=== PATIENT | female | born 1945 | race Caucasian/White ===

== ENCOUNTER 2019-11-14 21:15 | Observation (INO) | payer MEDICARE, SELFPAY ==
--- NOTE | ~2019-11-14 | CT_ITS ---
EXAMINATION: CT abdomen pelvis wo con DATE: 11/14/2019 22:09 INDICATION: Abdominal pain TECHNIQUE: Computed tomography (CT) of the abdomen and pelvis was performed without intravenous contr ast. The dose-length product (DLP) was 1478.47 mGy-cm. Automated exposure control and iterative recon struction technique were employed. COMPARISON: 12/20/2018 FINDINGS: There is pleural thickening and rounded atelectasis of the right lower lobe. The heart size is normal. Calcified coronary artery atherosclerosis is noted. The gallbladder is surgically absent. There is mild enlargement of the common bile duct and central intrahepatic ducts which is likely due to post cholecystectomy state. The liver, spleen, pancreas, and adrenal glands are normal. There is mild atrophy of the kidneys. There is calcified atherosclerosis of the aorta and many of the other ar teries. No pathologically enlarged abdominal or pelvic lymph nodes are identified. There are changes of right hemicolectomy. There is severe lumbar spondylosis. A tiny fat-containing umbilical hernia is noted. IMPRESSION: 1. No CT correlate for the patient's symptoms. Reviewed, dictated and finalized at location A.
--- NOTE | ~2019-11-14 | XR_ITS ---
EXAMINATION: XR chest 1V portable EXAM DATE: 11/14/2019 23:24 INDICATION: Cough. TECHNIQUE: Frontal and lateral projections of the chest obtained and reviewed. Comparison is made to prior examination from 12/20/2018. FINDINGS: Right lower lobe segmental airspace disease most likely round atelectasis with some chroni c right pleural blunting, correlating with chest CT from last year. Sternotomy wires are present with out findings to suggest sternal dehiscence. No acute airspace disease, pneumothorax or pleural effusi on. Right humeral hardware. The bones are osteopenic. There are bony degenerative changes. IMPRESSION: 1. No acute cardiopulmonary findings. Reviewed, dictated and finalized at location A.
[2019-11-14 21:23] VITALS: BP 135/59; PULSE 76; RESP 20; TEMP 37.1; O2SAT 99
--- NOTE | 2019-11-14 21:32 | ED.NAVMDI ---
HPI - Nausea/Vomiting/Diarrhea General Chief complaint: Nausea/Vomiting/Diarrhea Stated complaint: n/v Source: RN notes reviewed History of Present Illness HPI Narrative: Patient presents emergency department from home for nausea vomiting abdominal pain. Patient states symptoms began 2 days ago. States abdominal pain is diffuse throughout the abdomen described as aching with episodes of nausea and vomiting. Denies any fevers or chills chest pain shortness of breath diarrhea or any other symptoms. States she last took Tylenol this evening Related Data Home Medications Medication Instructions Recorded Confirmed fluorometholone 1 % OPHTHALMIC (EYE) BID 12/20/18 12/21/18 midodrine 5 mg PO TID 12/20/18 12/21/18 omeprazole 20 mg PO BID 12/20/18 12/21/18 insulin glargine 100 unit/mL (3 3 unit SUB-Q .QHS ml 03/09/19 11/02/19 mL) subcutaneous pen Allergies Allergy/AdvReac Type Severity Reaction Status Date / Time lisinopril Allergy Unknown Cough Verified 11/02/19 14:18 Review of Systems Review of Systems: Narrative: Gen.: Denies fevers or chills ENT: Denies congestion Respiratory: Denies shortness of breath or cough CV: Denies chest pain or palpitations GI: See HPI denies burning, urgency, frequency or hematuria Musculoskeletal: Denies back pain or muscle pain Neuro: Denies numbness, tingling, weakness or focal weakness Skin: Denies rash Except as documented, all other systems reviewed and negative PMFSH Past Medical History Medical History Acute hypercapnic respiratory failure requiring intubation January 2015 Anemia in chronic kidney disease last transfusion December 2017 COPD exacerbation Coronary artery disease End stage renal failure on dialysis hemodialysis Friday managed by Dr. Marmolejo Essential hypertension Gastritis determined by endoscopy April 2018 Glaucoma Gout History of GI bleed last EGD April [address] Arauz demonstrated multiple shallow duodenal ulcers without evidence of bleeding Lesion of skin of wrist Megaloblastic anemia Morbid obesity with BMI of 50.0-59.9, adult Obstructive sleep apnea treated with BiPAP Reflux esophagitis most recent EGD April 2018 Shingles Social History Social History Smoking status: Never smoker Alcohol intake: never Substance use: never Gender identity (if verbalized by the patient): Female Spiritual care concerns: No Agree to blood products: Yes Exam Narrative: Exam Narrative: APPEARANCE: No acute distress, nontoxic, resting in bed HEENT: Normocephalic, atraumatic, OMM RESPIRATORY: No respiratory distress, clear to auscultation bilaterally with no rhonchi wheezing or rales CARDIOVASCULAR: RRR s murmur ABDOMINAL: Soft, nondistended, diffusely tender palpation, no rebound or guarding MUSCULOSKELETAl: Moves all extremities. No clubbing, cyanosis or edema. NEURO: Awake and alert. Following commands, speech normal, no focal deficits SKIN:: Warm, dry. Normal Color PSYCHIATRIC: Normal affect/mood Course Course Emergency Course: Patient states he makes urine approximately once a day to once every other day she receives dialysis on Friday and is followed by Dr. Marmolejo for nephrology Patient continues to have nausea attempted p.o. challenge unable to keep down water will admit at this time Discussed with Dr. Freedman presentation work-up. Agrees with admission Discussed with patient and family results of workup and diagnosis. Discussed need for admission. Patient and family understand and agree to current treatment plan Vital Signs Vital signs: Vital Signs Temperature 98.8 F 11/14/19 21:23 Pulse Rate 76 11/14/19 21:23 Respiratory Rate 20 11/14/19 21:23 Blood Pressure 135/59 L 11/14/19 21:23 Pulse Oximetry 99 11/14/19 21:23 Temperature 98.8 F 11/14/19 21:23 Pulse
[2019-11-14] MEDS: SODIUM CHLORIDE 0.9% IV 1,000 ML 999 ML IV CONT (21:36)
[2019-11-14 21:40] LABS: Basophils Absolute Auto 0.1 K/mm3 (0.0-0.1); Basophils Percent Auto 0.8 % (0.2-1.2); Eosinophils Absolute Auto 0.1 K/mm3 (0-0.3); Eosinophils Percent Auto 1.3 % (0-4.4); Hemoglobin 11.1 g/dL (12.0-15.0); Immature Granulocyte Absolute 0.03 K/mm3 (0.00-0.031); Immature Granulocyte Percent A 0.5 % (0-0.5); Lymphocytes Absolute Auto 1.32 K/mm3 (0.9-3.2); Lymphocytes Percent Auto 21.6 % (18.3-44.2); Mean Corpuscular HGB Conc 31.7 g/dl (32-36); Mean Corpuscular Hemoglobin 33.4 pg (26-34); Mean Corpuscular Volume 105.4 fl (80-100); Mean Platelet Volume 9.4 fl (7.4-10.4); Monocytes Absolute Auto 0.7 K/mm3 (0.1-0.6); Monocytes Percent Auto 11.3 % (2.6-8.5); Neutrophils Absolute Auto 3.9 K/mm3 (1.3-6.7); Neutrophils Percent Auto 64.5 % (45.5-73.1); Platelet Count Result 166 k/mm3 (150-375); Red Blood Count 3.32 M/mm3 (4.2-5.4); Red Cell Distribution Width 13.2 % (11.5-14.5); White Blood Count 6.1 K/mm3 (4.5-10.0)
[2019-11-14 21:49] LABS: INR 1.1; Prothrombin Time 14.1 Seconds (11.1-14.7)
[2019-11-14 21:50] LABS: Partial Thromboplastin Time 26.9 SECONDS (22.3-36.8)
[2019-11-14 21:52] LABS: Alanine Aminotransferase 9 U/L (4-35); Albumin Level 4.3 g/dL (3.5-5.1); Alkaline Phosphatase 98 U/L (38-126); Anion Gap 20 mmol/L (8-16); Aspartate Amino Transferase 20 U/L (14-36); Bilirubin,Total 1.6 mg/dL (0.2-1.3); Blood Urea Nitrogen 48 mg/dL (7-17); Calcium 9.4 mg/dL (8.4-10.2); Carbon Dioxide 23 mmol/L (22-30); Chloride 96 mmol/L (98-107); Estimated CRCL calculation 7 ml/min; Estimated Glomerular Filt Rate 5; Glucose 75 mg/dL (65-105); Lipase 162 U/L (23-300); Potassium 3.9 mmol/L (3.4-5.0); Sodium 139 mmol/L (137-145)
[2019-11-14 23:28] LABS: Add Urine Microscopic? YES; Appearance Urine Turbid (Clear); Bilirubin Urine 2+ (Negative); Blood Urine Negative (Negative); Color Urine Yellow (Yellow); Glucose Urine UA Negative (Negative); Ketones Urine Negative (Negative); Leukocyte Esterase Ur 2+ LEU/UL (Negative); Nitrate Urine Negative (Negative); Protein Urine 2+ mg/dL (Negative); Specific Grav Ur 1.016 (1.001-1.035); Urobilinogen Urine Negative mg/dL (<2.0); WBC Clumps Urine Present /HPF; WBC Urine >75 /hpf
[2019-11-15] VITALS (20 sets, daily range): BP systolic 98–148; BP diastolic 36–75; PULSE 70–92; RESP 16–20; TEMP 36.2–37.2; O2SAT 99–100; BMI 48.7
--- NOTE | 2019-11-15 00:04 | PC.NURSE ---
pt provided with water at this time; states that she is nauseous, updated
--- NOTE | 2019-11-15 01:15 | ADMGEN ---
This patient, Reyes Osman, was admitted to [facility] Surg Room 306-01. Patient/family oriented to hospital policies and general routines including ID bracelet, bed and alarms, visiting hours, pain management, procedures, bathroom and other care routines, personal items, smoking policy, room service/diet, and visiting hours. Valuables list has been completed. Information on how to activate the Rapid Response Team has been discussed. Patient/Family are encouraged to report perceived risks to care and to ask questions if they do not understand what they are told or what they should do.
--- NOTE | 2019-11-15 03:28 | PC.NURSE ---
Called [facility] for med list. Facility to fax list.
[2019-11-15] MEDS: DEXTROSE 50% 25 GM/50 ML SYRINGE IV PUSH (05:35)
[2019-11-15 05:57] LABS: Glucose Point of Care 108 (65-105)
[2019-11-15 05:57] LABS: Glucose Point of Care 42 (65-105)
[2019-11-15 08:01] LABS: Hematocrit 32.2 % (37.0-47.0); Hemoglobin 10.3 g/dL (12.0-15.0); Mean Corpuscular Hemoglobin 33.8 pg (26-34); Mean Corpuscular Volume 105.6 fl (80-100); Mean Platelet Volume 9.4 fl (7.4-10.4); Platelet Count Result 152 k/mm3 (150-375); Red Blood Count 3.05 M/mm3 (4.2-5.4); Red Cell Distribution Width 13.2 % (11.5-14.5); White Blood Count 6.3 K/mm3 (4.5-10.0)
[2019-11-15 08:25] LABS: Anion Gap 17 mmol/L (8-16); Blood Urea Nitrogen 50 mg/dL (7-17); Calcium 9.1 mg/dL (8.4-10.2); Carbon Dioxide 23 mmol/L (22-30); Chloride 99 mmol/L (98-107); Estimated CRCL calculation 6 ml/min; Estimated Glomerular Filt Rate 4; Glucose 82 mg/dL (65-105); Potassium 3.7 mmol/L (3.4-5.0); Sodium 139 mmol/L (137-145)
--- NOTE | 2019-11-15 08:46 | PM.IMHP ---
H&P: HPI History of Present Illness Date/Time: 11/15/19 08:46 Chief complaint: UTI, nausea and vomiting, CHF Narrative: Reyes Osman is a 74 year old female with PMH significant for ESRD on HD, chronic anemia, IDDM, CAD s/p CABG, aortic stenosis s/p bioprosthetic repair and subsequent TAVR, HFpEF, NGUYỄN with BiPAP noncompliance, and GERD who presented to the emergency department for the evaluation of nausea, vomiting, and abdominal discomfort. She reports that symptoms started . She notes diffuse aching in the lower abdomen. She reports associated chills and malaise. She denies flank and lower back pain. She makes very little urine given ESRD on HD and denies dysuria but reports incontinence with coughing. She notes nausea and dry heaves. She denies chest pain, dyspnea, and cough. Her bowels are regular and her last bowel movement was yesterday. She is not having diarrhea, melena, or hematochezia. Initial workup in the emergency department was notable for UA with 2+ leukocyte esterase, >75 WBC, WBC clumps suspicious for UTI. CT abd/pelvis was performed with no acute abnormalities. WBC normal at 6.1. CXR showed no evidence of consolidation or other abnormalities. She was treated with IV ceftriaxone for UTI and admitted to the hospitalist service for further management. At the time of my evaluation, she feels much better and would like to try and eat something. Her nausea, vomiting, and abdominal pain have improved. Review of Systems Review of Systems: Narrative: Constitutional: Reports chills and malaise. Denies subjective fever. Eyes: Denies vision change. No additional eye complaints. ENT: Denies change in hearing, nasal congestion, dysphagia, odynophagia, and sore throat. Cardiovascular: Denies palpitations and chest pain. Denies dyspnea and PND. Respiratory: Denies cough and shortness of breath. Reports noncompliance with BiPAP for NGUYỄN. Gastrointestinal: As above. Reports nausea and vomiting. Reports diffuse aching abdominal pain. Genitourinary: Reports oliguria given ESRD on HD. Reports incontinence with coughing. Denies dysuria and hematuria. Musculoskeletal: Reports right left knee pain since she has not taken her lyrica today. Skin: LUE AV fistula present and functioning well per pt. Neurologic: Denies focal weakness, paresthesias, confusion, headaches, and speech change. Hematologic: Reports easy bruising. Denies bleeding. All systems reviewed & are unremarkable except as noted in HPI and below PMFSH Past Medical History Medical History (Updated 11/15/19 @ 09:35 by Zara Funez PA-C) Acute hypercapnic respiratory failure requiring intubation January 2015 Anemia in chronic kidney disease last transfusion December 2017 COPD exacerbation Coronary artery disease Depression End stage renal failure on dialysis hemodialysis Friday managed by Dr. Marmolejo Essential hypertension Gastritis determined by endoscopy April 2018 Glaucoma Gout History of GI bleed last EGD April [address] Arauz demonstrated multiple shallow duodenal ulcers without evidence of bleeding Lesion of skin of wrist Megaloblastic anemia Morbid obesity with BMI of 50.0-59.9, adult Obstructive sleep apnea treated with BiPAP Reflux esophagitis most recent EGD April 2018 Shingles Surgical History Surgical History (Updated 11/15/19 @ 09:06 by Zara Funez PA-C) H/O right hemicolectomy due to bowel perforation abscess January 2015 History of aortic valve replacement with bioprosthetic valve in 2012 History of cataract surgery bilateral History of cholecystectomy necrotic cholecystitis October 2014 with drain placed followed by eventual cholecystectomy and right hemicolectomy Hx of appendectomy S/P CABG x 5 in 2005 S/P dialysis catheter insertion S/P ORIF (open reduction internal fixation) fracture right humerus fracture S/P TAVR (transcatheter aortic valve replacement) Family History Fami
[2019-11-15] MEDS: ONDANSETRON INJ 4 MG/2 ML VIAL IV PUSH (09:07)
[2019-11-15] MEDS: ESCITALOPRAM OXALATE 10 MG TABLET PO (09:16)
[2019-11-15] MEDS: TICAGRELOR 90 MG TABLET PO ×2 (09:16→23:32)
[2019-11-15] MEDS: guaiFENesin 12 HR 600 MG TABCR 1200 MG PO ×2 (09:16→23:32)
[2019-11-15] MEDS: MIDODRINE HCL 2.5 MG TABLET 5 MG PO ×3 (09:17→17:29)
[2019-11-15] MEDS: PANTOPRAZOLE 40 MG TABLET PO ×2 (09:17→23:32)
[2019-11-15] MEDS: PREGABALIN (*CRX) 50 MG CAPSULE 100 MG PO ×2 (10:40→23:32)
[2019-11-15] MEDS: SUCRALFATE SUSP 100 MG/ML 10 ML UDC 1000 MG PO ×2 (13:06→17:28)
[2019-11-15 13:21] LABS: Glucose Point of Care 84 (65-105)
[2019-11-15] MEDS: ASPIRIN 81 MG CHEWABLE TABLET PO (17:29)
[2019-11-15 18:04] LABS: Glucose Point of Care 100 (65-105)
[2019-11-15 18:54] LABS: Hepatitis B Surface Antigen Negative (Negative)
[2019-11-15 19:12] LABS: Hepatitis B Surface Anti Res Negative
--- NOTE | 2019-11-15 21:46 | PC.NURSE ---
Patient wishes to take 2100 meds when dialysis is finished.
--- NOTE | 2019-11-15 22:33 | PM.PNNEP ---
Progress Note: A&P Assessment and Plan (1) Acute UTI: Code(s): N39.0 - Urinary tract infection, site not specified Status: Acute (2) Chronic pain: Code(s): G89.29 - Other chronic pain Status: Chronic (3) Depression: Code(s): F32.9 - Major depressive disorder, single episode, unspecified Status: Chronic (4) Coronary artery disease: Code(s): I25.10 - Atherosclerotic heart disease of [place] coronary artery without angina pectoris Status: Chronic (5) Nausea & vomiting: Code(s): R11.2 - Nausea with vomiting, unspecified Status: Acute (6) Chronic congestive heart failure: Code(s): I50.9 - Heart failure, unspecified Status: Acute (7) Coronary artery disease involving [place] heart without angina pectoris: Code(s): I25.10 - Atherosclerotic heart disease of [place] coronary artery without angina pectoris Status: Acute (8) Morbid obesity: Code(s): E66.01 - Morbid (severe) obesity due to excess calories Status: Acute (9) NGUYỄN (obstructive sleep apnea): Code(s): G47.33 - Obstructive sleep apnea (adult) (pediatric) Status: Acute (10) Multinodular goiter: Code(s): E04.2 - Nontoxic multinodular goiter Status: Acute (11) Mixed hyperlipidemia: Code(s): E78.2 - Mixed hyperlipidemia Status: Acute (12) Type 2 diabetes mellitus with diabetic nephropathy: Qualifiers: Diabetes mellitus manager terminal insulin use: with manager terminal use Qualified Code(s): E11.21 - Type 2 diabetes mellitus with diabetic nephropathy; Z79.4 - terminologist (current) use of insulin Code(s): E11.21 - Type 2 diabetes mellitus with diabetic nephropathy Status: Chronic (13) Generalized muscle weakness: Code(s): M62.81 - Muscle weakness (generalized) Status: Acute Additional Plan poss extra dialysis tomorrow. Subjective Date/time seen: 11/15/19 15:33 on dialysis mild to mod volume overload Objective Data Vital Signs Vital Signs: Vital Signs - 24 hr 11/15/19 01:00 11/15/19 01:15 11/15/19 05:50 Temperature 36.4 C L 36.3 C L Pulse Rate 77 81 86 Respiratory Rate 19 20 20 Blood Pressure 125/62 141/36 H 131/36 L Pulse Oximetry 100 100 100 11/15/19 14:00 11/15/19 19:35 11/15/19 19:46 Temperature 36.4 C 36.4 C Pulse Rate 76 73 72 Respiratory Rate 18 18 Blood Pressure 126/75 127/44 L 144/61 H Pulse Oximetry 99 11/15/19 20:00 11/15/19 20:15 11/15/19 20:30 Temperature Pulse Rate 70 78 78 Respiratory Rate Blood Pressure 148/52 H 107/40 L 118/55 L Pulse Oximetry 11/15/19 20:45 11/15/19 21:00 11/15/19 21:15 Temperature Pulse Rate 82 81 86 Respiratory Rate Blood Pressure 123/49 L 111/51 L 98/47 L Pulse Oximetry 11/15/19 21:30 11/15/19 21:45 11/15/19 22:00 Temperature Pulse Rate 83 90 89 Respiratory Rate Blood Pressure 116/56 L 105/54 L 112/36 L Pulse Oximetry 11/15/19 22:15 11/15/19 22:30 Temperature Pulse Rate 89 87 Respiratory Rate Blood Pressure 107/39 L 125/36 L Pulse Oximetry Intake/Output Intake/Output: Intake & Output 11/12/19 11/13/19 11/14/19 11/15/19 23:59 23:59 23:59 23:59 Intake Total 1000 1200 Balance 1000 1200 Meds/Results Medications: Active Medications Generic Name Dose Route Start Last Admin Trade Name Freq PRN Reason Stop Dose Admin Aspirin 81 mg 11/15/19 18:00 11/15/19 17:29 Aspirin Chewable PO 81 mg QPM ANDERS Administration Atorvastatin Calcium 20 mg 11/15/19 21:00 Lipitor PO HS [facility] Carvedilol 3.125 mg 11/16/19 09:00 Coreg PO [id number]@0900,2100 ANDERS Dextrose 12.5 gm 11/15/19 02:24 11/15/19 05:35 Dextrose 50% Syringe IV PUSH 12.5 gm PRN PRN Administration Hypoglycemia Protocol Donepezil HCl 10 mg 11/15/19 21:00 Aricept PO HS [facility] Escitalopram Oxalate 10 mg 11/15/19 09:00 11/15/19 09:16 Lexapro PO 10 mg AMINAH
[2019-11-15] MEDS: ATORVASTATIN 20 MG TABLET PO (23:32)
[2019-11-15] MEDS: DONEPEZIL HCL 10 MG TABLET PO (23:32)
[2019-11-15] MEDS: LATANOPROST 0.005% OP SOLN 2.5 ML BTL 1 DROP RIGHT EYE (23:33)
[2019-11-16 02:00] LABS: Glucose Point of Care 76 (65-105)
[2019-11-16 05:55] LABS: Glucose Point of Care 93 (65-105)
[2019-11-16 06:00] VITALS: BP 107/46; PULSE 82; RESP 20; TEMP 36.6; O2SAT 100
[2019-11-16 06:55] LABS: Basophils Absolute Auto 0.1 K/mm3 (0.0-0.1); Basophils Percent Auto 1.5 % (0.2-1.2); Eosinophils Absolute Auto 0.2 K/mm3 (0-0.3); Hematocrit 35.4 % (37.0-47.0); Hemoglobin 11.1 g/dL (12.0-15.0); Immature Granulocyte Absolute 0.03 K/mm3 (0.00-0.031); Immature Granulocyte Percent A 0.6 % (0-0.5); Lymphocytes Absolute Auto 0.97 K/mm3 (0.9-3.2); Lymphocytes Percent Auto 18.3 % (18.3-44.2); Mean Corpuscular HGB Conc 31.4 g/dl (32-36); Mean Corpuscular Hemoglobin 33.3 pg (26-34); Mean Corpuscular Volume 106.3 fl (80-100); Mean Platelet Volume 9.4 fl (7.4-10.4); Monocytes Absolute Auto 0.8 K/mm3 (0.1-0.6); Monocytes Percent Auto 14.7 % (2.6-8.5); Neutrophils Absolute Auto 3.3 K/mm3 (1.3-6.7); Neutrophils Percent Auto 61.9 % (45.5-73.1); Platelet Count Result 148 k/mm3 (150-375); Red Blood Count 3.33 M/mm3 (4.2-5.4); Red Cell Distribution Width 13.1 % (11.5-14.5); White Blood Count 5.3 K/mm3 (4.5-10.0)
--- NOTE | 2019-11-16 07:00 | PM.CNNEP ---
Assessment and Plan Assessment and plan (1) Acute UTI: Code(s): N39.0 - Urinary tract infection, site not specified Status: Acute Assessment and Plan: urine cx- 11/13 > 100k e coli (2) Coronary artery disease: Code(s): I25.10 - Atherosclerotic heart disease of [place] coronary artery without angina pectoris Status: Chronic (3) Reflux esophagitis: Code(s): K21.0 - Gastro-esophageal reflux disease with esophagitis Status: Chronic (4) Nausea & vomiting: Code(s): R11.2 - Nausea with vomiting, unspecified Status: Acute (5) Anemia, unspecified: Code(s): D64.9 - Anemia, unspecified Status: Acute (6) Chronic congestive heart failure: Code(s): I50.9 - Heart failure, unspecified Status: Acute (7) Coronary artery disease involving [place] heart without angina pectoris: Code(s): I25.10 - Atherosclerotic heart disease of [place] coronary artery without angina pectoris Status: Acute (8) Memory loss: Code(s): R41.3 - Other amnesia Status: Acute (9) NGUYỄN (obstructive sleep apnea): Code(s): G47.33 - Obstructive sleep apnea (adult) (pediatric) Status: Acute (10) Morbid obesity with BMI of 50.0-59.9, adult: Code(s): E66.01 - Morbid (severe) obesity due to excess calories; Z68.43 - Body mass index (BMI) 50.0-59.9, adult Status: Acute (11) End stage renal failure on dialysis: Code(s): N18.6 - End stage renal disease; Z99.2 - Dependence on renal dialysis Status: Chronic Additional Plan 1. cont abx- adjust based on sensitivity result which is pending 2. does not need extra dialysis today. 3. hd mwf 4. poss can go home later today once we have urine sensitivity. History of Present Illness Reason for Consult Consult date: 11/16/19 Chief Complaint Chief complaint: UTI, nausea and vomiting, CHF PMFSH Past Medical History Medical History (Updated 11/15/19 @ 09:35 by Zara Funez PA-C) Acute hypercapnic respiratory failure requiring intubation January 2015 Anemia in chronic kidney disease last transfusion December 2017 COPD exacerbation Coronary artery disease Depression End stage renal failure on dialysis hemodialysis Friday managed by Dr. Marmolejo Essential hypertension Gastritis determined by endoscopy April 2018 Glaucoma Gout History of GI bleed last EGD April [address] Arauz demonstrated multiple shallow duodenal ulcers without evidence of bleeding Lesion of skin of wrist Megaloblastic anemia Morbid obesity with BMI of 50.0-59.9, adult Obstructive sleep apnea treated with BiPAP Reflux esophagitis most recent EGD April 2018 Shingles Surgical History Surgical History (Updated 11/15/19 @ 09:06 by Zara Funez PA-C) H/O right hemicolectomy due to bowel perforation abscess January 2015 History of aortic valve replacement with bioprosthetic valve in 2012 History of cataract surgery bilateral History of cholecystectomy necrotic cholecystitis October 2014 with drain placed followed by eventual cholecystectomy and right hemicolectomy Hx of appendectomy S/P CABG x 5 in 2005 S/P dialysis catheter insertion S/P ORIF (open reduction internal fixation) fracture right humerus fracture S/P TAVR (transcatheter aortic valve replacement) Family History Family History Grandparent Family history of heart disease in male family member before age 55 Diabetes mellitus Family history of pancreatic cancer Mother Family history of congenital heart disease Family history of chronic obstructive pulmonary disease Family history of emphysema Cerebrovascular accident Father Family history of cardiovascular disease Family history of malignant neoplasm Social History Social History Social History: Mrs. Osman lives alone at [facility]
[2019-11-16 07:08] LABS: Albumin Level 3.9 g/dL (3.5-5.1); Anion Gap 13 mmol/L (8-16); Bilirubin Indirect 0.2 mg/dL (0-1.1); Bilirubin,Total 1.3 mg/dL (0.2-1.3); Blood Urea Nitrogen 19 mg/dL (7-17); Calcium 9.4 mg/dL (8.4-10.2); Carbon Dioxide 30 mmol/L (22-30); Chloride 95 mmol/L (98-107); Estimated CRCL calculation 11 ml/min; Estimated Glomerular Filt Rate 9; Glucose 98 mg/dL (65-105); Phosphorus 5.1 mg/dL (2.5-4.5); Potassium 3.1 mmol/L (3.4-5.0); Sodium 138 mmol/L (137-145)
[2019-11-16 08:00] VITALS: PULSE 70; RESP 18; O2SAT 98
[2019-11-16] MEDS: MIDODRINE HCL 2.5 MG TABLET 5 MG PO ×2 (08:47→15:37)
[2019-11-16] MEDS: PREGABALIN (*CRX) 50 MG CAPSULE 100 MG PO (08:47)
[2019-11-16 08:48] VITALS: PULSE 70
[2019-11-16] MEDS: guaiFENesin 12 HR 600 MG TABCR 1200 MG PO (08:48)
[2019-11-16] MEDS: carvediloL 3.125 MG TABLET PO (08:48)
[2019-11-16] MEDS: TICAGRELOR 90 MG TABLET PO (08:48)
[2019-11-16] MEDS: ESCITALOPRAM OXALATE 10 MG TABLET PO (08:48)
[2019-11-16] MEDS: PANTOPRAZOLE 40 MG TABLET PO (08:49)
[2019-11-16] MEDS: POTASSIUM CHLORIDE 20 MEQ TABLET 40 MEQ PO (09:06)
--- NOTE | 2019-11-16 13:57 | PM.DS ---
DS: Admitting Diagnosis Admitting Diagnosis Admitting Diagnosis: UTI, nausea and vomiting, CHF DS: Discharge Diagnosis Discharge Diagnosis (1) Acute UTI: Code(s): N39.0 - Urinary tract infection, site not specified Status: Acute Assessment and Plan: E coli UTI. (2) Nausea & vomiting: Code(s): R11.2 - Nausea with vomiting, unspecified Status: Acute Assessment and Plan: Resolved (3) End stage renal failure on dialysis: Code(s): N18.6 - End stage renal disease; Z99.2 - Dependence on renal dialysis Status: Chronic Assessment and Plan: Had dialysis 11/15/2019 (4) Type 2 diabetes mellitus with diabetic nephropathy: Qualifiers: Diabetes mellitus terminal supervisor insulin use: with fci use Qualified Code(s): E11.21 - Type 2 diabetes mellitus with diabetic nephropathy; Z79.4 - technician terminal and repeater (current) use of insulin Code(s): E11.21 - Type 2 diabetes mellitus with diabetic nephropathy Status: Chronic Assessment and Plan: A1c 5.6 11/02/19. Blood sugar was low at 42 on presentation to the ED. Glucose back within normal range. Will start her home meds once she is discharged. (5) Anemia, unspecified: Code(s): D64.9 - Anemia, unspecified Status: Acute Assessment and Plan: Vitamin B12 was on the low end of normal during last hospitalization. MCV is macrocytic.Vitamin B12 and folate are now normal. (6) Coronary artery disease: Code(s): I25.10 - Atherosclerotic heart disease of [place] coronary artery without angina pectoris Status: Chronic Assessment and Plan: No acute issues. Continue ASA, ticagrelor, and carvedilol. (7) Reflux esophagitis: Code(s): K21.0 - Gastro-esophageal reflux disease with esophagitis Status: Chronic Assessment and Plan: Protonix in place of omeprazole while inpatient. Continue prior to admission sucralfate 1 hr before meals. (8) Obstructive sleep apnea treated with BiPAP: Code(s): G47.33 - Obstructive sleep apnea (adult) (pediatric) Status: Chronic Assessment and Plan: Pt reports BiPAP noncompliance. Educated on importance of compliance. (9) Chronic pain: Code(s): G89.29 - Other chronic pain Status: Chronic Assessment and Plan: Continue prior to admission pregabalin. (10) Depression: Code(s): F32.9 - Major depressive disorder, single episode, unspecified Status: Chronic Assessment and Plan: Continue escitalopram. DS: Summary Hospital Course Reason for hospitalization: Patient is 74-year-old woman with history of end-stage renal disease on hemodialysis, insulin-dependent diabetes with peripheral neuropathy, anemia of chronic disease, CAD status post CABG, who presented to the emergency department with generalized weakness, fatigue, nausea, vomiting, abdominal pain.Showed temperature of 98.8?, blood pressure 135/59, heart rate 76, respiratory rate 20, oxygen saturation 99% on room air. Labs showed normal leukocytosis, macrocytic anemia with hemoglobin of 11, hematocrit 35%, normal coag panel, elevated creatinine at 8.2, BUN 48, total bili slightly elevated at 1.6. Urinalysis showed turbid urine, 2+ protein, 2+ bili, 2+ leukocyte esterase, greater than 75 WBCs and WBC clumps consistent with a UTI. Chest x-ray on arrival showed no acute cardiopulmonary findings. CT abdomen pelvis showed no acute abnormality consistent with her symptoms. She was admitted into the hospital and started on IV antibiotics for possible UTI, and it gave p.r.n. antiemetics for nausea and vomiting, most likely secondary to acute UTI. Nephrology was consulted due to her end-stage renal disease and need dialysis. Patient received dialysis yesterday. She is feeling much better today after IV antibiotics. Urine culture came back Growing E coli UTI which is pansensitive except for resistant to Cipro and ind
[2019-11-16 14:00] VITALS: BP 121/48; PULSE 80; RESP 18; TEMP 36.7; O2SAT 100
[2019-11-16 18:04] LABS: Glucose Point of Care 148 (65-105)
--- NOTE | 2019-11-16 18:41 | PC.NURSE ---
Family to b ring clothes and pick pt up. IV has been removed, Dikscharged papers have been discussed and signed.
== END 2019-11-16 20:00 ==
LOC: ANHED 11-15 00:07 → ANH3MEDSUR 11-15 00:41
PROVIDERS: Internal Medicine Nephrology; Physician Assistant; Admitting Provider Family Medicine; Emergency Provider Emergency Medicine; PCP Family Medicine; Visit Provider Physician Assistant
DX: N39.0 Urinary tract infection, site not specified (principal); R11.2 Nausea with vomiting, unspecified; I13.2 Hypertensive heart and chronic kidney disease with heart failure and with stage 5 chronic kidney disease, or end stage renal disease; N18.6 End stage renal disease; Z99.2 Dependence on renal dialysis; I50.9 Heart failure, unspecified; M62.81 Muscle weakness (generalized); J44.9 Chronic obstructive pulmonary disease, unspecified; H40.9 Unspecified glaucoma; M10.9 Gout, unspecified; D63.1 Anemia in chronic kidney disease; G47.33 Obstructive sleep apnea (adult) (pediatric); E11.21 Type 2 diabetes mellitus with diabetic nephropathy; E11.22 Type 2 diabetes mellitus with diabetic chronic kidney disease; I25.10 Atherosclerotic heart disease of native coronary artery without angina pectoris; E78.2 Mixed hyperlipidemia; E04.2 Nontoxic multinodular goiter; K21.0 Gastro-esophageal reflux disease with esophagitis; G89.29 Other chronic pain; F32.9 Major depressive disorder, single episode, unspecified; Z79.82 Long term (current) use of aspirin; Z79.4 Long term (current) use of insulin; Z95.1 Presence of aortocoronary bypass graft; Z95.4 Presence of other heart-valve replacement; Z91.19 Patient's noncompliance with other medical treatment and regimen; E66.01 Morbid (severe) obesity due to excess calories; Z68.42 Body mass index [BMI] 45.0-49.9, adult; Z90.49 Acquired absence of other specified parts of digestive tract
CPT/HCPCS: 36415; 71045; 74176; 80048; 80053; 80069; 81001; 82247; 82248; 82607; 82746; 83690; 85025; 85027; 85610; 85730; 86706; 87077; 87086; 87088; 87186; 87340; 96361; 96365; 96375; 99285; A9270; G0257; G0378; J0696; J1644; J2405; J7030

== ENCOUNTER 2019-11-24 08:59 | Emergency (ER) | payer MEDICARE, SELFPAY ==
--- NOTE | ~2019-11-24 | XR_ITS ---
EXAMINATION: XR chest 2V EXAM DATE: 11/24/2019 10:07 INDICATION: Falls. Chest pain. TECHNIQUE: Frontal and lateral projections of the chest obtained and reviewed. Comparison is made to prior examination from 11/14/2019. FINDINGS: Sternotomy wires are present without findings to suggest sternal dehiscence. Cardiac valve replacement. Right humeral hardware. No confluent consolidation, pneumothorax or pleural effusion logan spected. The cardiomediastinal silhouette is prominent but magnified on this AP technique. Cardiac si lhouette is stable in size compared to prior exam. The bones are osteopenic. There are bony degenera tive changes. IMPRESSION: 1. Chronic findings unchanged. Reviewed, dictated and finalized at location B.
--- NOTE | ~2019-11-24 | CT_ITS ---
EXAMINATION: CT brain wo con DATE: 11/24/2019 10:03 INDICATION: Fall. Head injury. TECHNIQUE: Computed tomography (CT) of the head was performed without intravenous contrast. The mA wa s adjusted according to patient size. Iterative reconstruction technique was employed. Exam dose: 60 5.33 mGy-cm total exam DLP. COMPARISON: 01/06/2019 CT brain FINDINGS: No intracranial mass lesion or hemorrhage or cerebrovascular accident is detected. No midli ne shift or mass effect. There is mild left basal ganglia calcification. No subdural or epidural hematoma. There is moderate cerebral and cerebellar atrophy. No subdural or epidural hematoma. No fracture or bone destruction of the cranial vault. The mastoid air cells and included paranasal sinuses are unremarkable. IMPRESSION: No acute intracranial finding or skull fracture Reviewed, dictated and finalized at Location A. Reviewed, dictated and finalized at location A.
[2019-11-24 09:03] VITALS: BP 119/58; PULSE 83; RESP 18; TEMP 36.6; O2SAT 92
--- NOTE | 2019-11-24 09:10 | PC.NURSE ---
PT is normally on room air but states that she sometimes wears O2 just for comfort.
--- NOTE | 2019-11-24 09:40 | PC.NURSE ---
Called lab again to check on status of lab draw. Was informed that she will get down here as soon as she can. Informed charged nurse of this.
--- NOTE | 2019-11-24 09:43 | ED.FALL ---
HPI - Fall General Chief Complaint: Fall <Joni Hines PA-C - Last Filed: 11/24/19 18:02> Stated Complaint: FALL, LEG CRAMPS <RANJANA Browning Last Filed: 11/24/19 18:02> Time Seen by Provider: 11/24/19 09:10 <Joni Hines PA-C - Last Filed: 11/24/19 18:02> Source: patient <RANJANA Browning Last Filed: 11/24/19 18:02> Mode of arrival: EMS <RANJANA Browning Last Filed: 11/24/19 18:02> Limitations: no limitations <RANJANA Browning Last Filed: 11/24/19 18:02> History of Present Illness HPI Narrative: Patient presents for evaluation of frontal forehead tenderness and left chest bruising and discomfort after falling at the [facility] today at approximately 8 AM. Patient states that she has leg cramps and was trying to get herself ready for dialysis today when she fell. Patient states that her quality internship is Dr. Natty Marmolejo and she has dialysis every Friday. Patient denies loss of consciousness, neck pain, back pain, hip pain, changes in vision or hearing, abdominal pain, cardiac chest pain, shortness of breath, or extremity pain. She states she has leg cramps and neuropathy in her legs so it causes her to fall at times. She denies being on the ground more than a few minutes before staff came to help her up. She now only complains of frontal forehead pain and bruising, swelling and tenderness to her left upper chest wall. <Joni Hines PA-C - Last Filed: 11/24/19 18:02> Related Data Home Medications: Home Medications Medication Instructions Recorded Confirmed midodrine 5 mg PO TID 12/20/18 11/15/19 omeprazole 20 mg PO DAILY 12/20/18 11/15/19 insulin glargine 100 unit/mL (3 1 - 3 unit SUB-Q .QHS ml 03/09/19 11/15/19 mL) subcutaneous pen Auryxia 210 mg PO TID 11/15/19 11/15/19 Humalog U-100 Insulin 1 - 3 sliding scale dose SUBCUT 11/15/19 11/15/19 USEASDIRECTD PreserVision AREDS-2 1 tablet PO BID 11/15/19 11/15/19 aspirin 81 mg PO QPM 11/15/19 11/15/19 calcium carbonate-vitamin D3 1 tablet PO DAILY 11/15/19 11/15/19 carvedilol [Coreg] 3.125 mg PO BID 11/15/19 11/15/19 guaifenesin 1,200 mg PO BID 11/15/19 11/15/19 latanoprost 1 drp RIGHTEYE DAILY 11/15/19 11/15/19 sucralfate 10 ml PO DAILY 11/15/19 11/15/19 <Joni Hines PA-C - Last Filed: 11/24/19 18:02> Allergies/Adverse Reactions: Allergies Allergy/AdvReac Type Severity Reaction Status Date / Time lisinopril Allergy Unknown Cough Verified 11/24/19 10:25 <Joni Hines PA-C - Last Filed: 11/24/19 18:02> Review of Systems Review of Systems: Narrative: CONSTITUTIONAL: Denies fever, chills, or sweats. EYES: Denies visual changes, redness, or discharge. ENT: Denies rhinorrhea, congestion, sore throat, or otalgia. CARDIOVASCULAR: Denies chest pain, palpitations, or edema. RESPIRATORY: Denies cough or dyspnea. GASTROINTESTINAL: Denies abdominal pain, nausea, vomiting, or diarrhea. GENITOURINARY: Denies dysuria or hematuria. SKIN: Reports bruising and swelling Denies rash or itching. MUSCULOSKELETAL: Denies back pain, myalgia, or joint pain NEUROLOGIC: Reports headache,Denies numbness, dizziness, or weakness. PSYCHIATRIC: Denies anxiety or depression. <Joni Hines PA-C - Last Filed: 11/24/19 18:02> [facility] Social History Social History: Social History Social History: Mrs. Osman lives alone at [facility] in [place]. She has no children. She is retired from working at a [employer]. She wishes to be a DNR and has designated her niece, Latisha Marcos, as her surrogate decision maker. Smoking status: Never smoker Alcohol intake: never Substance use: never Gender identity (if verbalized by the patient): Female Spiritual care concerns: No Agree to blood products: Yes <Joni Hines PA-C - Last Filed: 11/24/19 18:02> Exam Narrative: Exam Narrative: GENERAL
--- NOTE | 2019-11-24 10:57 | PC.NURSE ---
this RN to bedside. labs drawn peripheral from (R) AC.
[2019-11-24 11:06] LABS: Basophils Absolute Auto 0.1 K/mm3 (0.0-0.1); Eosinophils Absolute Auto 0.1 K/mm3 (0-0.3); Eosinophils Percent Auto 1.6 % (0-4.4); Hematocrit 34.1 % (37.0-47.0); Hemoglobin 10.1 g/dL (12.0-15.0); Immature Granulocyte Absolute 0.04 K/mm3 (0.00-0.031); Immature Granulocyte Percent A 0.6 % (0-0.5); Lymphocytes Absolute Auto 0.74 K/mm3 (0.9-3.2); Mean Corpuscular HGB Conc 29.6 g/dl (32-36); Mean Corpuscular Hemoglobin 32.9 pg (26-34); Mean Corpuscular Volume 111.1 fl (80-100); Monocytes Absolute Auto 0.6 K/mm3 (0.1-0.6); Monocytes Percent Auto 9.2 % (2.6-8.5); Neutrophils Absolute Auto 4.7 K/mm3 (1.3-6.7); Neutrophils Percent Auto 75.6 % (45.5-73.1); Platelet Count Result 134 k/mm3 (150-375); Red Blood Count 3.07 M/mm3 (4.2-5.4); Red Cell Distribution Width 13.4 % (11.5-14.5); White Blood Count 6.2 K/mm3 (4.5-10.0)
[2019-11-24 11:13] LABS: Prothrombin Time 13.3 Seconds (11.1-14.7)
[2019-11-24 11:14] LABS: Partial Thromboplastin Time 28.1 SECONDS (22.3-36.8)
[2019-11-24 11:16] LABS: Alanine Aminotransferase 9 U/L (4-35); Albumin Level 4.2 g/dL (3.5-5.1); Alkaline Phosphatase 141 U/L (38-126); Anion Gap 17 mmol/L (8-16); Aspartate Amino Transferase 16 U/L (14-36); Bilirubin,Total 1.6 mg/dL (0.2-1.3); Blood Urea Nitrogen 52 mg/dL (7-17); Calcium 9.5 mg/dL (8.4-10.2); Carbon Dioxide 26 mmol/L (22-30); Chloride 98 mmol/L (98-107); Estimated CRCL calculation 7 ml/min; Estimated Glomerular Filt Rate 5; Glucose 205 mg/dL (65-105); Sodium 141 mmol/L (137-145)
[2019-11-24] MEDS: ACETAMINOPHEN 325 MG TABLET 650 MG PO (11:29)
[2019-11-24 11:30] VITALS: BP 112/58; PULSE 75; RESP 18; O2SAT 100
[2019-11-24 11:56] VITALS: BP 113/37; PULSE 70; RESP 17; O2SAT 100
[2019-11-24 13:22] VITALS: BP 107/54; PULSE 78; RESP 18; O2SAT 97
[2019-11-24] MEDS: SODIUM POLYSTYRENE SULFONONATE 15 GM/60 ML BTL 30 GM PO (13:22)
== END 2019-11-24 13:25 ==
PROVIDERS: Physician Assistant; Emergency Provider General Practice; PCP Family Medicine
DX: S20.212A Contusion of left front wall of thorax, initial encounter (principal); W19.XXXA Unspecified fall, initial encounter; S09.90XA Unspecified injury of head, initial encounter; N18.4 Chronic kidney disease, stage 4 (severe); Z99.2 Dependence on renal dialysis; Z66 Do not resuscitate
CPT/HCPCS: 36415; 70450; 71046; 80053; 85025; 85610; 85730; 99284; A9270

== ENCOUNTER 2020-03-03 14:10 | Emergency (ER) | payer MEDICARE, SELFPAY ==
--- NOTE | ~2020-03-03 | XR_ITS ---
EXAMINATION: XR chest 1V DATE: 03/03/2020 16:13 INDICATION: Left chest pain and weakness post fall TECHNIQUE: frontal view of the chest was obtained. COMPARISON: Chest radiograph dated 11/24/2019 FINDINGS: Chronic opacity at the posterior right lung base superimposed over the diaphragm corresponding to chr onic round atelectasis best appreciated on CT dated 11/14/2019. Mild opacity medial left lung base and favor atelectasis over pneumonia. No pulmonary edema, pleural effusion or pneumothorax. Cardiomegaly. Median sternotomy wires and mediastinal surgical clips are seen, likely from prior christina nary artery bypass grafting. Additionally there has been prior aortic valve repair and stenting of th e aortic root. Retained epicardial pacemaker leads. Widening of the left acromioclavicular joint whic h could be related to prior trauma or surgery. Old internally fixed fracture of the proximal right hu merus. Several surgical clips at the proximal left upper arm. IMPRESSION: 1. Chronic round atelectasis at the right lung base and predominantly streaky opacities at the left l naina base and favor atelectasis over pneumonia. 2. Cardiomegaly. 3. Multiple postoperative changes as detailed above. Reviewed, dictated and finalized at location A. NEL SALES MANAGER IMPRESSION: 1. Chronic round atelectasis at the right lung base and predominantly streaky o pacities at the left lung base and favor atelectasis over pneumonia. 2. Cardiomegaly. 3. Multiple postoperative changes as detailed above.
--- NOTE | ~2020-03-03 | CT_ITS ---
EXAMINATION: CT cervical spine wo con DATE: 03/03/2020 16:00 INDICATION: Head injury. TECHNIQUE: Computed tomography (CT) of the cervical spine was performed without intravenous contrast. Automated exposure control and iterative reconstruction technique were employed. The dose-length pro duct was 605.33 mGy-cm. COMPARISON: CT cervical spine 02/19/2018 FINDINGS: There is a multinodular goiter. Bone alignment is normal. There is developmental anterior a nd posterior fusion at T1-T2. There is mildly decreased disc height at C2-C3 and severely decreased d isc height from C3-C4 through C7-T1 with endplate remodeling. The following disc levels are specifica lly discussed: C2-C3: There is mild bilateral uncovertebral joint osteoarthritis. There is mild bilateral facet join t osteoarthritis. There is no neural foraminal stenosis. There is mild central canal stenosis. C3-C4: There is severe bilateral uncovertebral joint osteoarthritis. There is mild bilateral facet bernadetet int osteoarthritis. There is mild bilateral neural foraminal stenosis. There is mild central canal st enosis. C4-C5: There is severe bilateral uncovertebral joint osteoarthritis. There is moderate right and mild left facet joint osteoarthritis. There is mild bilateral neural foraminal stenosis. There is mild ce ntral canal stenosis. C5-C6: There is severe bilateral uncovertebral joint osteoarthritis. There is moderate bilateral face t joint osteoarthritis. There is mild bilateral neural foraminal stenosis. There is moderate central canal stenosis. C6-C7: There is mild right and severe left uncovertebral joint osteoarthritis. There is severe bilate ral facet joint osteoarthritis. There is mild bilateral neural foraminal stenosis. There is mild cent ral canal stenosis. C7-T1: There is severe bilateral uncovertebral joint osteoarthritis. There is severe bilateral facet joint osteoarthritis. There is mild bilateral neural foraminal stenosis. There is mild central canal stenosis. IMPRESSION: 1. No fracture. 2. Severe cervical spondylosis. Reviewed, dictated and finalized at location A. CARVER
--- NOTE | ~2020-03-03 | CT_ITS ---
EXAMINATION: CT brain wo con DATE: 03/03/2020 16:00 INDICATION: Head injury. TECHNIQUE: Computed tomography (CT) of the head was performed without intravenous contrast. The mA wa s adjusted according to patient size. Iterative reconstruction technique was employed. The dose-lengt h product was 605.33 mGy-cm. COMPARISON: Head CT 11/24/2019 FINDINGS: There are scattered areas of low attenuation in the cerebral white matter. There is no intr acranial hemorrhage, acute infarction, or abnormal intracranial mass lesion. There is an old infarct in left frontoparietal region. There is a small old infarct in right cerebellum. The ventricles are n ormal in size. There are likely changes of ocular lens replacement surgeries. There is mild mucosal t hickening in the ethmoid sinuses. There are trace bilateral mastoid effusions. IMPRESSION: 1. 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 2. Stable moderate nonspecific cerebral white matter disease, which likely represents chronic small v essel ischemic disease. Reviewed, dictated and finalized at location A. WOOD FLOOR INSTALLATION HELPER IMPRESSION: 1. 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 2. Stable moderate nonspecific cerebral white matter disease, which likely repr esents chronic small vessel ischemic disease.
[2020-03-03 14:09] VITALS: BP 118/40; PULSE 93; RESP 14; TEMP 36.1; O2SAT 100
--- NOTE | 2020-03-03 15:19 | ED.FALL ---
HPI - Fall General Chief Complaint: Fall Stated Complaint: fall Time Seen by Provider: 03/03/20 14:53 Source: patient Mode of arrival: EMS Limitations: no limitations History of Present Illness HPI Narrative: This patient is a 74 year old female who presents from [facility] side for evaluation of head injury. Patient states she was trying to open the refrigerator door when her legs gave out. She states she hit her head on the wall but denies LOC. She reports headache and neck pain. She states she has chronic neck pain but it is worse since her fall. She denies extremity pain . She denies chest pain, sob, fever or cough. She received heparin every other day with her dialysis but she denies any other anticoagulation. She reports having dialysis today and her chute tender is Dr. Marmolejo. Related Data Home Medications Medication Instructions Recorded Confirmed midodrine 5 mg PO TID 12/20/18 11/15/19 omeprazole 20 mg PO DAILY 12/20/18 11/15/19 insulin glargine 100 unit/mL (3 1 - 3 unit SUB-Q .QHS ml 03/09/19 11/15/19 mL) subcutaneous pen Humalog U-100 Insulin 1 - 3 sliding scale dose SUBCUT 11/15/19 11/15/19 USEASDIRECTD PreserVision AREDS-2 1 tablet PO BID 11/15/19 11/15/19 aspirin 81 mg PO QPM 11/15/19 11/15/19 calcium carbonate-vitamin D3 1 tablet PO DAILY 11/15/19 11/15/19 carvedilol [Coreg] 3.125 mg PO BID 11/15/19 11/15/19 latanoprost 1 drp RIGHTEYE DAILY 11/15/19 11/15/19 famotidine 20 mg PO BID 03/03/20 sevelamer carbonate 0.8 g PO TID 03/03/20 vitamin B complex 1 cap PO DAILY 03/03/20 Allergies Allergy/AdvReac Type Severity Reaction Status Date / Time lisinopril Allergy Unknown Cough Verified 03/03/20 14:19 Review of Systems Review of Systems: All systems reviewed & are unremarkable except as noted in HPI and below Constitutional: Constitutional: Denies chills and Denies fever(s) ENT: Denies nasal congestion Cardiovascular: Cardiovascular: Denies chest pain Respiratory: Respiratory: Reports dyspnea (chronic) Gastrointestinal: Gastrointestinal: Denies abdominal pain, Denies nausea and Denies vomiting [facility] Past Medical History Medical History (Updated 03/03/20 @ 19:06 by Catherine Harry MD) Acute hypercapnic respiratory failure requiring intubation January 2015 Anemia in chronic kidney disease last transfusion December 2017 COPD exacerbation Coronary artery disease Depression End stage renal failure on dialysis hemodialysis Friday managed by Dr. Marmolejo Essential hypertension Gastritis determined by endoscopy April 2018 Glaucoma Gout History of GI bleed last EGD April [address] Arauz demonstrated multiple shallow duodenal ulcers without evidence of bleeding Lesion of skin of wrist Megaloblastic anemia Morbid obesity with BMI of 50.0-59.9, adult Obstructive sleep apnea treated with BiPAP Reflux esophagitis most recent EGD April 2018 Shingles Surgical History Surgical History H/O right hemicolectomy due to bowel perforation abscess January 2015 History of aortic valve replacement with bioprosthetic valve in 2012 History of cataract surgery bilateral History of cholecystectomy necrotic cholecystitis October 2014 with drain placed followed by eventual cholecystectomy and right hemicolectomy Hx of appendectomy S/P CABG x 5 in 2005 S/P dialysis catheter insertion S/P ORIF (open reduction internal fixation) fracture right humerus fracture S/P TAVR (transcatheter aortic valve replacement) Family History Family History Grandparent Family history of heart disease in male family member before age 55 Diabetes mellitus Family history of pancreatic cancer Mother Family history of congenital heart disease Family history of chronic obstructive pulmonary disease Family history of emphysema Cerebrovascular accident Father
[2020-03-03 15:32] VITALS: BP 117/53; PULSE 83; RESP 17; O2SAT 100
[2020-03-03 15:37] LABS: Glucose Point of Care 88 (65-105)
[2020-03-03 15:40] LABS: Hematocrit 33.4 % (37.0-47.0); Hemoglobin 9.9 g/dL (12.0-15.0); Mean Corpuscular HGB Conc 29.6 g/dl (32-36); Mean Corpuscular Hemoglobin 34.3 pg (26-34); Mean Corpuscular Volume 115.6 fl (80-100); Mean Platelet Volume 9.6 fl (7.4-10.4); Platelet Count Result 111 k/mm3 (150-375); Red Blood Count 2.89 M/mm3 (4.2-5.4); Red Cell Distribution Width 13.9 % (11.5-14.5); White Blood Count 6.8 K/mm3 (4.5-10.0)
[2020-03-03 15:44] LABS: Base Excess ABG 0.7 mEq/l (+/-2.0); Carboxyhemoglobin 0.7 % THb (0-2.0); Fractional Inspired Oxygen 28 %; HCO3 ABG 28.5 mEq/l (22.0-26.0); Methemoglobin ABG 0.1 %THb (0-1.5); Oxygen Content ABG 15.1 %vol (16.0-22.0); PO2 ABG 175.1 mmHg (80.0-100.0); PO2 FiO2 Ratio Arterial Blood 6.25 %; Reduced Hemoglobin 1.2 %THb (0-5.0); Total Hemoglobin 10.7 g/dL (12.0-18.0)
[2020-03-03 15:46] LABS: PCO2 ABG 62.1 mmHg (35.0-45.0); pH ABG 7.279 (7.350-7.450)
[2020-03-03 15:47] LABS: Device NASAL CANNULA; Modified Allen's Test Pass; Site Drawn RIGHT RADIAL
[2020-03-03 15:50] LABS: Prothrombin Time 13.4 Seconds (11.1-14.7)
[2020-03-03 15:51] LABS: Partial Thromboplastin Time 25.7 SECONDS (22.3-36.8)
[2020-03-03 15:53] LABS: Alanine Aminotransferase 6 U/L (4-35); Albumin Level 3.9 g/dL (3.5-5.1); Alkaline Phosphatase 126 U/L (38-126); Anion Gap 5 mmol/L (8-16); Aspartate Amino Transferase 17 U/L (14-36); Bilirubin,Total 0.9 mg/dL (0.2-1.3); Blood Urea Nitrogen 14 mg/dL (7-17); Calcium 8.9 mg/dL (8.4-10.2); Carbon Dioxide 33 mmol/L (22-30); Chloride 99 mmol/L (98-107); Estimated CRCL calculation 16 ml/min; Estimated Glomerular Filt Rate 14; Glucose 97 mg/dL (65-105); Magnesium 1.7 mg/dL (1.6-2.3); Potassium 3.9 mmol/L (3.4-5.0); Sodium 137 mmol/L (137-145)
[2020-03-03 16:08] LABS: Band Neutrophils Percent 1 % (0-6); Eosinophils Absolute Manual 0.61 K/mm3 (0.02-0.5); Eosinophils Percent Manual 9 % (0-4); Lymphocytes Absolute Manual 0.88 K/mm3 (1.1-4.5); Monocytes Absolute Manual 0.68 K/mm3 (0.1-0.90); Monocytes Percent Manual 10 % (3-9); Neutrophils Absolute Manual 4.62 K/mm3 (1.7-7.2); Neutrophils Percent Manual 67 % (46-73); Total Cells Counted 100
[2020-03-03 16:10] LABS: Anisocytosis 1+ (NORMAL); Platelet Estimate Decreased (Adequate)
[2020-03-03 17:27] VITALS: BP 111/68; PULSE 86; RESP 18; O2SAT 100
--- NOTE | 2020-03-03 17:59 | PC.NURSE ---
Straight cathed patient at this time, sent approx 1-2 ml of purulent urine to lab. States that is insufficient amount for test. Dr. Harry notified. Patient states she does not produce much urine since being dialysis.
[2020-03-03 18:00] VITALS: BP 104/43; PULSE 77; RESP 18; O2SAT 99
[2020-03-03 18:28] LABS: Alveolar/Arterial O2 Gradient 38.4 mmHg; Base Excess ABG -0.2 mEq/l (+/-2.0); Fractional Inspired Oxygen 21 %; HCO3 ABG 25.6 mEq/l (22.0-26.0); Oxygen Content ABG 12.8 %vol (16.0-22.0); Oxyhemoglobin 88.4 % THb (90.0-100.0); PCO2 ABG 47.1 mmHg (35.0-45.0); PO2 ABG 54.9 mmHg (80.0-100.0); PO2 FiO2 Ratio Arterial Blood 2.61 %; Total Hemoglobin 10.3 g/dL (12.0-18.0); pH ABG 7.353 (7.350-7.450)
[2020-03-03 18:30] LABS: Device ROOM AIR; Modified Allen's Test Pass; Site Drawn RIGHT RADIAL
--- NOTE | 2020-03-03 19:04 | PC.NURSE ---
Patient transferred with one standby assist using walker at this time. Tolerated well.
--- NOTE | 2020-03-03 19:28 | PC.NURSE ---
Called [facility] to request transport. ETA [id number] Called NOAH, Rony, and Ana. All declined.
[2020-03-03 20:30] VITALS: BP 114/48; PULSE 84; RESP 18; O2SAT 94
== END 2020-03-03 20:30 ==
PROVIDERS: Emergency Provider General Practice; PCP Family Medicine
DX: S09.90XA Unspecified injury of head, initial encounter (principal); I12.0 Hypertensive chronic kidney disease with stage 5 chronic kidney disease or end stage renal disease; N18.6 End stage renal disease; G47.33 Obstructive sleep apnea (adult) (pediatric); R06.89 Other abnormalities of breathing; Z99.2 Dependence on renal dialysis; D63.1 Anemia in chronic kidney disease; I25.10 Atherosclerotic heart disease of native coronary artery without angina pectoris; J44.9 Chronic obstructive pulmonary disease, unspecified; H40.9 Unspecified glaucoma; K21.9 Gastro-esophageal reflux disease without esophagitis; E66.01 Morbid (severe) obesity due to excess calories; Z68.42 Body mass index [BMI] 45.0-49.9, adult; Z90.49 Acquired absence of other specified parts of digestive tract; Z95.2 Presence of prosthetic heart valve; Z98.42 Cataract extraction status, left eye; Z98.41 Cataract extraction status, right eye; Z95.1 Presence of aortocoronary bypass graft; Z79.4 Long term (current) use of insulin; Z79.82 Long term (current) use of aspirin; R90.82 White matter disease, unspecified; M47.812 Spondylosis without myelopathy or radiculopathy, cervical region; I51.7 Cardiomegaly; R91.8 Other nonspecific abnormal finding of lung field
CPT/HCPCS: 36415; 36600; 70450; 71045; 72125; 80053; 82375; 82805; 83050; 83735; 85025; 85610; 85730; 99284

== ENCOUNTER 2020-03-14 09:39 | Inpatient (IN) | payer MEDICARE, SELFPAY ==
[2020-03-14] VITALS (7 sets, daily range): BP systolic 105–138; BP diastolic 42–75; PULSE 74–97; RESP 17–25; TEMP 35.9–36.8; O2SAT 97–100; BMI 47.9
--- NOTE | ~2020-03-14 | CT_ITS ---
EXAMINATION: CT LE RT w con DATE: 03/14/2020 15:36 INDICATION: Right lower leg injury. TECHNIQUE: Computed tomography (CT) of the right lower limb was performed with 100 mL Omnipaque 350 i ntravenous contrast. Automated exposure control and iterative reconstruction technique were employed. The dose-length product was 1061.07 mGy-cm. COMPARISON: Right tibia and fibula radiographs 03/14/2020 FINDINGS: Bone alignment is normal. No acute fracture. There is an old healed fracture deformity of d istal tibia with 2 mm offset at the articular surface. The knee demonstrates moderate osteoarthritis in the medial compartment and mild osteoarthritis in the lateral and patellofemoral compartments. The re is mild polyarticular osteoarthritis in the foot and ankle. There are enthesophytes at the posteri or and plantar aspect of calcaneal tuberosity. There is mild to moderate fatty atrophy of the muscula ture throughout the lower limb. There is a skin defect anteromedial to tibial diaphysis. There are so ft tissue attenuation masses within the subcutaneous fat, consistent with hematomas. There are foci o f gas in the soft tissues deep to the skin defect. There are multiple foci of high attenuation in the subcutaneous fat, likely dystrophic calcifications. There are widespread arterial calcifications wit hout significant arterial stenosis. IMPRESSION: 1. Laceration of the anteromedial lower leg with acute hematomas in the subjacent fat. Foci of high a ttenuation within the hematomas may be dystrophic soft tissue calcifications. Active extravasation fr om unnamed small subcutaneous vessels could have the same appearance. Reviewed, dictated and finalized at location A. HYSICAL LABORATORY DIRECTOR IMPRESSION: 1. Laceration of the anteromedial lower leg with acute hematomas in the subjace nt fat. Foci of high attenuation within the hematomas may be dystrophic soft ti ssue calcifications. Active extravasation from unnamed small subcutaneous vesse ls could have the same appearance.
--- NOTE | ~2020-03-14 | XR_ITS ---
EXAMINATION: XR tibia fibula RT 2V EXAM DATE: 03/14/2020 11:41 INDICATION: Initial encounter following injury, with pain of the right tibia/fibula. TECHNIQUE: Right tibia/fibula frontal and lateral projections obtained and reviewed. Correlation is m jesse to right ankle exam 05/06/2016. FINDINGS: Previously seen right tibial plafond and. Fracture has healed. There are no acute fractures or dislocations identified. There is no subcutaneous gas. There are arterial calcifications, arter iosclerosis. There is moderate right knee primary osteoarthritis. There are no radiopaque foreign bod ies. IMPRESSION: Right tibia/fibula exam without acute osseous findings. Reviewed, dictated and finalized at location A. RES TRADER
--- NOTE | 2020-03-14 11:03 | PC.NURSE ---
Wound care at bedside at this time, general surgery consult at this time
[2020-03-14] MEDS: HYDROmorphone HCL INJ (*CRX) 1 MG/ML SYR 0.5 MG IV PUSH (11:08)
[2020-03-14 11:58] LABS: Basophils Absolute Auto 0.1 K/mm3 (0.0-0.1); Basophils Percent Auto 0.9 % (0.2-1.2); Eosinophils Absolute Auto 0.3 K/mm3 (0-0.3); Eosinophils Percent Auto 4.2 % (0-4.4); Hemoglobin 8.8 g/dL (12.0-15.0); Immature Granulocyte Absolute 0.04 K/mm3 (0.00-0.031); Immature Granulocyte Percent A 0.6 % (0-0.5); Lymphocytes Absolute Auto 1.04 K/mm3 (0.9-3.2); Lymphocytes Percent Auto 16.3 % (18.3-44.2); Mean Corpuscular HGB Conc 30.3 g/dl (32-36); Mean Corpuscular Hemoglobin 33.6 pg (26-34); Mean Corpuscular Volume 110.7 fl (80-100); Mean Platelet Volume 11.2 fl (7.4-10.4); Monocytes Absolute Auto 0.7 K/mm3 (0.1-0.6); Monocytes Percent Auto 10.2 % (2.6-8.5); Neutrophils Absolute Auto 4.3 K/mm3 (1.3-6.7); Neutrophils Percent Auto 67.8 % (45.5-73.1); Platelet Count Result 135 k/mm3 (150-375); Red Blood Count 2.62 M/mm3 (4.2-5.4); Red Cell Distribution Width 14.6 % (11.5-14.5); White Blood Count 6.4 K/mm3 (4.5-10.0)
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
[2020-03-14 12:43] LABS: INR 1.1; Prothrombin Time 14.7 Seconds (11.1-14.7)
[2020-03-14 12:44] LABS: Partial Thromboplastin Time 28.9 SECONDS (22.3-36.8)
[2020-03-14 12:45] LABS: Alanine Aminotransferase 10 U/L (4-35); Albumin Level 3.3 g/dL (3.5-5.1); Alkaline Phosphatase 120 U/L (38-126); Anion Gap 8 mmol/L (8-16); Aspartate Amino Transferase 32 U/L (14-36); Bilirubin,Total 1.3 mg/dL (0.2-1.3); Blood Urea Nitrogen 25 mg/dL (7-17); Calcium 8.7 mg/dL (8.4-10.2); Carbon Dioxide 28 mmol/L (22-30); Chloride 97 mmol/L (98-107); Estimated CRCL calculation 10 ml/min; Estimated Glomerular Filt Rate 8; Glucose 80 mg/dL (65-105); Potassium 3.8 mmol/L (3.4-5.0); Sodium 133 mmol/L (137-145)
--- NOTE | 2020-03-14 15:23 | PM.CNGS ---
Assessment and Plan Assessment and plan (1) Hematoma of right lower leg: Code(s): S80.11XA - Contusion of right lower leg, initial encounter Status: Acute Assessment and Plan: Patient presents with hematoma of right lower leg with an open skin tear overlying this area after a second trauma to this area. The hematoma does not appear to be infected and there is no area of overlying skin necrosis. Dr. Jo used silver nitrate sticks at the bedside to help control the superficial bleeding in the wound. We would recommend holding her Brilinta at this time and continue to monitor. Okay to resume the low-dose aspirin. Wound care consulted and placing orders for local wound care. We will apply vasoline gauze to the open area and wrap with kerlex and maribel wrap for compression. Elevate the lower leg. No plans for surgical intervention at this time. Will continue to monitor. Thank you for allowing us to see the patient in consultation and we will continue to follow along with you. (2) End stage renal failure on dialysis: Code(s): N18.6 - End stage renal disease; Z99.2 - Dependence on renal dialysis Status: Chronic Assessment and Plan: Hemodialysis on , , . Management per Hospitalist. (3) Coronary artery disease involving [place] heart without angina pectoris: Code(s): I25.10 - Atherosclerotic heart disease of [place] coronary artery without angina pectoris Status: Acute Assessment and Plan: On dual anti-platelet therapy. Hold Brilinta. Okay to resume aspirin 81 mg. (4) Type 2 diabetes mellitus with diabetic nephropathy: Qualifiers: Diabetes mellitus care home insulin use: with intermediate designer use Qualified Code(s): E11.21 - Type 2 diabetes mellitus with diabetic nephropathy; Z79.4 - senior living (current) use of insulin Code(s): E11.21 - Type 2 diabetes mellitus with diabetic nephropathy Status: Chronic Assessment and Plan: Management per Hospitalist. (5) Presence of prosthetic heart valve: Code(s): Z95.2 - Presence of prosthetic heart valve Status: Acute (6) Morbid obesity: Code(s): E66.01 - Morbid (severe) obesity due to excess calories Status: Acute (7) Chronic congestive heart failure: Code(s): I50.9 - Heart failure, unspecified Status: Acute (8) COPD (chronic obstructive pulmonary disease): Code(s): J44.9 - Chronic obstructive pulmonary disease, unspecified Status: Inactive (9) Anemia in chronic kidney disease: Qualifiers: Chronic kidney disease stage: on chronic dialysis Qualified Code(s): N18.6 - End stage renal disease; D63.1 - Anemia in chronic kidney disease; Z99.2 - Dependence on renal dialysis Code(s): N18.9 - Chronic kidney disease, unspecified; D63.1 - Anemia in chronic kidney disease Status: Acute (10) NGUYỄN (obstructive sleep apnea): Code(s): G47.33 - Obstructive sleep apnea (adult) (pediatric) Status: Acute Additional Plan Discussed the patient's plan of care with Dr. Jo. History of Present Illness Consult details Consult date: 03/14/20 Reason for consult: other (Right lower extremity hematoma) Requesting physician: Joni Hines PA-C Narrative: This is a 74-year-old female with a history of end-stage renal disease on hemodialysis, diabetes mellitus, COPD, CAD, and previous aortic valve replacements x 2. She presented to the ER today after injuring her right lower leg at her PCP's office. She is not on oral anticoagulation, but does receive heparin with her dialysis treatments three times per week. She reportedly hit her leg while at dialysis about 10 days ago. There was some swelling and bruising on the right lower leg following the injury, but she has not seen anyone for this. She then fell and hit her head on 03/03/20 and was back in the ER at that time. Head and cervical spine CT showed no acute changes. She reports increased falls recently due to w
--- NOTE | 2020-03-14 15:26 | PC.NURSE ---
Patient's niece at bedside states Since she is not going to surgery tonight then we want her transfered to [facility]. We only stayed here because we thought the surgery could get done faster. They allow visitors over there and we want her over there. EDP and charge nurse aware.
--- NOTE | 2020-03-14 16:57 | ADMGEN ---
This patient, Reyes Osman, was admitted to Medical Room 260-. Patient/family oriented to hospital policies and general routines including ID bracelet, bed and alarms, visiting hours, pain management, procedures, bathroom and other care routines, personal items, smoking policy, room service/diet, and visiting hours. Information on how to activate the Rapid Response Team has been discussed. Patient/Family are encouraged to report perceived risks to care and to ask questions if they do not understand what they are told or what they should do.
--- NOTE | 2020-03-14 18:50 | PC.NURSE ---
Patients blood glucose is low, juice given. glucose improving and patient eating dinner,no distress.
[2020-03-14 18:53] LABS: Glucose Point of Care 52 (65-105)
[2020-03-14 19:14] LABS: Glucose Point of Care 66 (65-105)
--- NOTE | 2020-03-14 20:54 | PM.IMHP ---
H&P: HPI History of Present Illness Date/Time: 03/14/20 22:20 Chief Complaint: Right leg is bleeding after injury Narrative: Reyes Osman is a 74 year old female with a past medical history of dementia, diabetes, hypertension, and end-stage renal disease on hemodialysis who presented to the ER today from physician's office building for leg injury. The patient was using her motorized scooter and hit her leg on a chair resulting in laceration and hematoma of the anteromedial lower leg. Patient's hemoglobin was checked in the ER and was 1 g lower than her baseline comparison from 11 days ago. The patient is on a baby aspirin and Brilinta. She reports intermittent stabbing pain in her right lower extremity in the area of the wound. The pain was relieved of Dilaudid in the ER. Review of Systems Review of Systems: Narrative: 12 systems were reviewed with pertinent positives and negatives per HPI. Except as documented in the HPI, all other systems were reviewed and are negative. [facility] Past Medical History Medical History (Updated 03/15/20 @ 00:47 by Dorita Cruz DO) Acute hypercapnic respiratory failure requiring intubation January 2015 Anemia in chronic kidney disease last transfusion December 2017 BMI greater than 40 Chronic congestive heart failure COPD (chronic obstructive pulmonary disease) Coronary artery disease CVA (cerebral vascular accident) CT scan demonstrates multiple left frontal and parietal infarcts and right cerebellar infarcts Depression End stage renal failure on dialysis hemodialysis Friday managed by Dr. Marmolejo Essential hypertension Gastritis determined by endoscopy April 2018 Glaucoma Gout History of atrial fibrillation History of GI bleed last EGD April [address] Arauz demonstrated multiple shallow duodenal ulcers without evidence of bleeding Lesion of skin of wrist Megaloblastic anemia Memory loss Likely due to vascular dementia given evidence of multiple areas infarct on CT scan. Patient is on Aricept Obstructive sleep apnea treated with BiPAP Orthostatic hypotension On midodrine Reflux esophagitis most recent EGD April 2018 Shingles Surgical History Surgical History H/O right hemicolectomy due to bowel perforation abscess January 2015 History of aortic valve replacement with bioprosthetic valve June 08, 2012 - placement of bioprostehtic valve replacement History of cataract surgery bilateral History of cholecystectomy necrotic cholecystitis October 2014 with drain placed followed by eventual cholecystectomy and right hemicolectomy Hx of appendectomy S/P CABG x 5 in 2005 S/P dialysis catheter insertion S/P ORIF (open reduction internal fixation) fracture right humerus fracture S/P TAVR (transcatheter aortic valve replacement) Following initial aortic valve replacement, she was diagnosed with severe bioprosthetic aortic valve stenosis. Subsequently, she underwent valve in valve TAVR on 2017. Family History Family History Grandparent Family history of heart disease in male family member before age 55 Diabetes mellitus Family history of pancreatic cancer Mother Family history of congenital heart disease Family history of chronic obstructive pulmonary disease Family history of emphysema Cerebrovascular accident Father Family history of cardiovascular disease Family history of malignant neoplasm Social History Social History Social History: Mrs. Osman lives alone at [facility] in [place]. She has no children. She is retired from working at a [employer] company. She wishes to be a DNR and has designated her niece, Latisha Marcos, as her surrogate decision maker. Smoking status: Never smoker Alcohol intake: never Substance use: never Gender i
[2020-03-14 22:31] LABS: Glucose Point of Care 173 (65-105)
[2020-03-14] MEDS: HYDROcodone/acetaminophen (*CRX) 5-325 MG TABLET 1 TAB PO (23:10)
[2020-03-14] MEDS: ASPIRIN 81 MG CHEWABLE TABLET PO (23:10)
[2020-03-14] MEDS: PREGABALIN (*CRX) 50 MG CAPSULE 100 MG PO (23:11)
[2020-03-14] MEDS: SEVELAMER CARBONATE 800 MG TABLET PO (23:11)
[2020-03-14] MEDS: carvediloL 3.125 MG TABLET PO (23:12)
[2020-03-14] MEDS: MIDODRINE HCL 2.5 MG TABLET 5 MG PO (23:12)
[2020-03-14] MEDS: OPTI-GEN TAB 1 TABLET PO (23:12)
[2020-03-14] MEDS: DONEPEZIL HCL 10 MG TABLET PO (23:12)
[2020-03-14] MEDS: LATANOPROST 0.005% OP SOLN 2.5 ML BTL 1 DROP RIGHT EYE (23:13)
[2020-03-14] MEDS: FAMOTIDINE 20 MG TABLET PO (23:13)
[2020-03-15] VITALS (19 sets, daily range): BP systolic 90–127; BP diastolic 28–52; PULSE 73–100; RESP 17–20; TEMP 36–37; O2SAT 2–98
[2020-03-15 05:43] LABS: Hematocrit 26.6 % (37.0-47.0); Mean Corpuscular HGB Conc 30.1 g/dl (32-36); Mean Corpuscular Hemoglobin 33.2 pg (26-34); Mean Corpuscular Volume 110.4 fl (80-100); Mean Platelet Volume 10.1 fl (7.4-10.4); Platelet Count Result 109 k/mm3 (150-375); Red Blood Count 2.41 M/mm3 (4.2-5.4); Red Cell Distribution Width 14.2 % (11.5-14.5); White Blood Count 5.3 K/mm3 (4.5-10.0)
[2020-03-15 06:06] LABS: Anion Gap 8 mmol/L (8-16); Blood Urea Nitrogen 33 mg/dL (7-17); Calcium 8.6 mg/dL (8.4-10.2); Carbon Dioxide 27 mmol/L (22-30); Chloride 95 mmol/L (98-107); Estimated CRCL calculation 9 ml/min; Estimated Glomerular Filt Rate 7; Glucose 161 mg/dL (65-105); Potassium 4.1 mmol/L (3.4-5.0); Sodium 130 mmol/L (137-145)
[2020-03-15 08:04] LABS: Glucose Point of Care 146 (65-105)
--- NOTE | 2020-03-15 08:22 | PM.CNNEP ---
Assessment and Plan Assessment and plan (1) Hematoma and contusion: Code(s): T14.8XXA - Other injury of unspecified body region, initial encounter Status: Acute (2) Anemia, unspecified: Qualifiers: Anemia type: unspecified type Qualified Code(s): D64.9 - Anemia, unspecified Code(s): D64.9 - Anemia, unspecified Status: Acute (3) Coronary artery disease involving [place] heart without angina pectoris: Code(s): I25.10 - Atherosclerotic heart disease of [place] coronary artery without angina pectoris Status: Acute (4) Morbid obesity: Code(s): E66.01 - Morbid (severe) obesity due to excess calories Status: Acute (5) Presence of prosthetic heart valve: Code(s): Z95.2 - Presence of prosthetic heart valve Status: Acute (6) Type 2 diabetes mellitus with diabetic nephropathy: Qualifiers: Diabetes mellitus watermelon harvesting supervisor insulin use: with care home use Qualified Code(s): E11.21 - Type 2 diabetes mellitus with diabetic nephropathy; Z79.4 - alf (current) use of insulin Code(s): E11.21 - Type 2 diabetes mellitus with diabetic nephropathy Status: Chronic (7) Obstructive sleep apnea treated with BiPAP: Code(s): G47.33 - Obstructive sleep apnea (adult) (pediatric) Status: Chronic (8) End stage renal failure on dialysis: Code(s): N18.6 - End stage renal disease; Z99.2 - Dependence on renal dialysis Status: Chronic Additional Plan 1. hemodialysis. 2. wound care consult. 3. consider ct of right leg and orthopaedic input. 4. epogen 5. monitor hh- but currently no plan for transfusion for hemoglobin of 8 from 8.9 (additional- received a call from support team of family who usually represent themselves as patient's niece- MS. SORTO. Niece was wanting patient to be transferred and complained about no dressing change to leg since ysterday. I explained that she had a pressure dressing that should be pulled off each time a nurse/ doctor comes in but that I had ordered a wound consult and mentioned she coould need to be seen by an orthopaedic doctor or have a ct scan but it did not seem per ER team assessement that the wound was very deep. NIece countered this saying the wound went to the bone and had exposed bone which i am not aware of. NIece wanted pt to be transferred to [facility] b/c her facilities assistant isn't at [place] but i corrected her and told her that her facilities assistant is at [place] as a group and that I had no reason to transfer her at this time.) History of Present Illness Reason for Consult Consult date: 03/16/20 Reason for consult: end stage renal disease Chief Complaint Chief complaint: Right leg laceration w surrounding hematoma History of Present Illness Narrative: 74 yo wf w dmii, esrd on hd BRODY SWANNANOA MW 2ND SHIFT [phone], HTN, NGUYỄN, MORBID OBESITY, CAD W PREVIOUS AVR BIOPROSTHESIS NOT METALLIC, OSTEOARTHRITIS, DM NEUROPATHY, OSTEOARTHRITIS - ALL WHICH SIGNIFICANTLY AFFECT HER MOBILITY REQUIRING A WALKING AND LIMITING HER STEPS. SHE WAS APPARENTLY AT HER PCP OFFICE DR. KEYES YESTERDAY AND ON THE WAY OUT OF THE OFFICE RAIN INTO A PROJECTING OBJECT WHICH STUCK HER IN HER RIGHT LEG AND TORE THE SKIN. HER WOUND WAS EVALUATED BY THE ER TEAM WITH PRESSURE DRESSING RECOMMENDED. SHE WAS KEPT TO MONITOR HER BLOOD COUNT WHICH WENT DOWN FROM 8.9 TO 8. SHE IS OW STABLE. Review of Systems Cardiovascular: Comments: denies chest pain and shortness of breath Musculoskeletal: Comments: complaining of some tightness and tingling her ankle/ lower leg on right well below/ distal to the hematoma on the right calf which currently has a pressure dressing on it. [facility] Past Medical History Medical History (Updated 03/16/20 @ 06:02 by Natty Marmolejo MD) Acute hypercapnic respiratory failure requiring intubation January 2015 Anemia in chronic kidney disease last transfusion December 2017 BMI greater than 40 Chronic con
[2020-03-15] MEDS: FAMOTIDINE 20 MG TABLET PO ×2 (08:28→21:43)
[2020-03-15] MEDS: PANTOPRAZOLE 40 MG TABLET PO (08:28)
[2020-03-15] MEDS: MIDODRINE HCL 2.5 MG TABLET 5 MG PO ×3 (08:28→21:43)
[2020-03-15] MEDS: OPTI-GEN TAB 1 TABLET PO ×2 (08:28→21:43)
--- NOTE | 2020-03-15 08:28 | PHAR ---
Epogen info sheet sent. Used for anemia of CKD
[2020-03-15] MEDS: SEVELAMER CARBONATE 800 MG TABLET PO ×3 (09:02→21:43)
[2020-03-15] MEDS: PREGABALIN (*CRX) 50 MG CAPSULE 100 MG PO ×2 (09:02→21:47)
[2020-03-15] MEDS: HYDROcodone/acetaminophen (*CRX) 5-325 MG TABLET 1 TAB PO ×2 (09:02→21:37)
[2020-03-15] MEDS: ESCITALOPRAM OXALATE 10 MG TABLET PO (09:36)
[2020-03-15] MEDS: ATORVASTATIN 20 MG TABLET PO (09:36)
[2020-03-15] MEDS: VITAMIN B COMPLEX CAPSULE 1 CAP PO (09:36)
[2020-03-15 10:21] LABS: Hepatitis B Core IgM Result Negative (Negative)
[2020-03-15 10:33] LABS: Hepatitis C Virus Antibody Negative (Negative)
--- NOTE | 2020-03-15 11:14 | PM.IMPN ---
Progress Note: A&P Assessment and Plan (1) Hematoma of right lower leg: Code(s): S80.11XA - Contusion of right lower leg, initial encounter Status: Acute Assessment and Plan: She hit her leg at hemodialysis 10 days ago which resulted in bruising and ecchymosis. She subsequently went to an appointment with her PCP yesterday and injured the previously affected area when hitting a desk which caused a laceration. She was sent to the emergency department due to bleeding. She typically takes ticagrelor and ASA. General surgery was consulted in the emergency department and recommended holding ticagrelor and local wound care for now. CT demonstrated laceration of the anteromedial lower leg with acute hematomas in the subjacent fat with foci of high attenuation within the hematomas secondary to tissue calcifications versus active extravasation from unnamed small subcutaneous vessels could have the same appearance. Discussed with Dr. Jo who does not feel antibiotics are indicated at this time. She is afebrile without leukocytosis. Continue pressure dressing and await further general surgery input Monitor closely for signs of further bleeding Continue norco as needed for pain Ticagrelor is on hold for now per general surgery recommendations. ASA is fine from their standpoint and will be continued. (2) Anemia, unspecified: Qualifiers: Anemia type: unspecified type Qualified Code(s): D64.9 - Anemia, unspecified Code(s): D64.9 - Anemia, unspecified Status: Acute Assessment and Plan: The patient's baseline hemoglobin appears to be 9-10. Hemoglobin on arrival was 8.8, a slight decline from baseline and likely secondary to acute blood loss from her injury. Hb is stable today at 8.0. Continue to monitor hemoglobin and hematocrit with daily CBC Transfuse as needed to maintain Hb >7 (3) Diabetes mellitus with hypoglycemia: Qualifiers: Diabetes mellitus complication detail: without coma Diabetes mellitus fdc insulin use: with fdc use Diabetes mellitus type: type 2 Qualified Code(s): E11.649 - Type 2 diabetes mellitus with hypoglycemia without coma; Z79.4 - longterm (current) use of insulin Code(s): E11.649 - Type 2 diabetes mellitus with hypoglycemia without coma Status: Acute Assessment and Plan: Hemoglobin 03/14/20 was 5.1%. She is currently on 3 units glargine qHS and sliding scale prior to admission. Blood sugar was low at 56 on arrival to the ED but blood sugars have improved today. Most recent was 187. Hold the patient's long-acting insulin for now Continue ACHS glucose monitoring, sliding scale insulin, and hypoglycemia protocol Adjust regimen as needed (4) End stage renal failure on dialysis: Code(s): N18.6 - End stage renal disease; Z99.2 - Dependence on renal dialysis Status: Chronic Assessment and Plan: Dr. Marmolejo with nephrology has been consulted to maintain HD on a M,W,F schedule while hospitalized. Management per nephrology Sodium is low at 130 and this should improve with fluid removal during hemodialysis (5) Coronary artery disease: Code(s): I25.10 - Atherosclerotic heart disease of [place] coronary artery without angina pectoris Status: Chronic Assessment and Plan: Chronic. She has no acute complaints at this time. Continue ASA and carvedilol Resume ticagrelor when fine from a general surgery standpoint (6) NGUYỄN (obstructive sleep apnea): Code(s): G47.33 - Obstructive sleep apnea (adult) (pediatric) Status: Acute Assessment and Plan: Continue BiPAP titrated to home settings Subjective Date/time seen: 03/15/20 11:14 Ms. Osman is a 74 y.o. female with PMH significant for ESRD on HD, chronic anemia, IDDM, CAD s/p CABG, aortic stenosis s/p bioprosthetic repair and subsequent TAVR, HFpEF, NGUYỄN with BiPAP noncompliance, and GERD w
[2020-03-15 11:18] LABS: Glucose Point of Care 187 (65-105)
--- NOTE | 2020-03-15 16:19 | PM.PNGS ---
Progress Note: A&P Assessment and Plan (1) Hematoma of right lower leg: Code(s): S80.11XA - Contusion of right lower leg, initial encounter Status: Acute Assessment and Plan: Hematoma of the right lower leg looks better today, swelling is down. No signs of active bleeding. Hemoglobin remained stable. Right lower extremity CT shows laceration of the anterior row medial lower leg with acute hematomas in the subadjacent fat. There is mention of foci of gas in the soft tissues, but this is felt to be related to the open laceration/wound. Continue to hold Brilinta. Will continue with local wound care and compression dressing. Elevate lower leg while at rest. I discussed the treatment plan with the patient's niece over the phone in the presence of the patient, with her permission. All is agreeable with the plan. There is concern for the patient having frequent falls at home and increased weakness. The family is also concerned that she will not be able to care for her wound at home, which is possible. I spoke with care coordination regarding possible SNF placement when nearing discharge for wound care and PT. PT/OT ordered today to evaluate the patient. (2) End stage renal failure on dialysis: Code(s): N18.6 - End stage renal disease; Z99.2 - Dependence on renal dialysis Status: Chronic Assessment and Plan: Hemodialysis on , , . Management per Hospitalist. (3) Coronary artery disease involving [place] heart without angina pectoris: Code(s): I25.10 - Atherosclerotic heart disease of [place] coronary artery without angina pectoris Status: Acute Assessment and Plan: On dual anti-platelet therapy. Continue to hold Brilinta. Okay to continue aspirin 81 mg. (4) Type 2 diabetes mellitus with diabetic nephropathy: Qualifiers: Diabetes mellitus retirement insulin use: with retirement use Qualified Code(s): E11.21 - Type 2 diabetes mellitus with diabetic nephropathy; Z79.4 - intermediate project manager (current) use of insulin Code(s): E11.21 - Type 2 diabetes mellitus with diabetic nephropathy Status: Chronic Assessment and Plan: Management per Hospitalist. (5) Presence of prosthetic heart valve: Code(s): Z95.2 - Presence of prosthetic heart valve Status: Acute Additional Plan Discussed the patient's plan of care with Dr. Jo. Subjective Subjective Date/Time Seen: 03/15/20 16:19 Patient reports: no new complaints and feels better Interval history: Patient seen today with wound care nurses. She denies any new complaints. No significant pain in the right lower extremity when at rest. Review of Systems Review of Systems: All systems reviewed & are unremarkable except as noted in HPI and below Constitutional: Constitutional: Denies chills and Denies fever(s) Exam Const: General: comfortable, no acute distress, alert and awake Nutritional Appearance: obese morbidly obese Skin: Other: Right lower leg hematoma with overlying large skin tear (measurements in wound care note). Overall swelling appears to be improved with no active bleeding. Still does not appear infected. Does not appear to probe to bone. Reapplied compression bandage. Large area of ecchymosis extending from left hip up to the left upper back. Soft, no obvious hematoma or skin breakdown. Neuro: General: moves all extremities and no focal motor deficits Psych: Appearance: grossly normal Mental Status: mental status grossly normal Insight: Good insight present (Psych) Judgement: Good judgement present (Psych) Objective Data Vital Signs Vital Signs: Vital Signs - 24 hr 03/14/20 18:44 03/14/20 22:00 03/14/20 23:12 Temperature 96.7 F L 97.6 F Pulse Rate 76 80 80 Respiratory Rate 17 20 Blood Pressure 122/60 121/42 L Pulse Oximetry 100 98 03/15/20 06:00 03/15/20 16:05 Temperature 97.7 F Pulse Rate 74 Respiratory Rate 20 Blood Pressure 102/40 L Pulse Oximetry 98 9
--- NOTE | 2020-03-15 16:25 | PC.NURSE ---
Patient to dialysis per bed.
[2020-03-15 18:05] LABS: Hepatitis B Surface Anti Res Negative
[2020-03-15] MEDS: HYDROcodone/acetaminophen (*CRX) 7.5-325 MG TABLET 1 TAB PO (18:37)
[2020-03-15] MEDS: ASPIRIN 81 MG CHEWABLE TABLET PO (21:43)
[2020-03-15] MEDS: DONEPEZIL HCL 10 MG TABLET PO (21:43)
[2020-03-15] MEDS: LATANOPROST 0.005% OP SOLN 2.5 ML BTL 1 DROP RIGHT EYE (21:44)
[2020-03-15 22:30] LABS: Glucose Point of Care 108 (65-105)
[2020-03-16] MEDS: HYDROcodone/acetaminophen (*CRX) 5-325 MG TABLET 1 TAB PO (03:17)
[2020-03-16 05:10] VITALS: BP 91/36; PULSE 74; RESP 22; TEMP 35.5; O2SAT 96
[2020-03-16 05:43] LABS: Basophils Absolute Auto 0.1 K/mm3 (0.0-0.1); Basophils Percent Auto 0.9 % (0.2-1.2); Eosinophils Absolute Auto 0.4 K/mm3 (0-0.3); Eosinophils Percent Auto 7.9 % (0-4.4); Hematocrit 25.9 % (37.0-47.0); Hemoglobin 8.1 g/dL (12.0-15.0); Immature Granulocyte Absolute 0.03 K/mm3 (0.00-0.031); Immature Granulocyte Percent A 0.5 % (0-0.5); Lymphocytes Percent Auto 18.1 % (18.3-44.2); Mean Corpuscular HGB Conc 31.3 g/dl (32-36); Mean Corpuscular Hemoglobin 34.2 pg (26-34); Mean Corpuscular Volume 109.3 fl (80-100); Mean Platelet Volume 10.3 fl (7.4-10.4); Monocytes Absolute Auto 0.6 K/mm3 (0.1-0.6); Monocytes Percent Auto 11.4 % (2.6-8.5); Neutrophils Absolute Auto 3.4 K/mm3 (1.3-6.7); Neutrophils Percent Auto 61.2 % (45.5-73.1); Platelet Count Result 113 k/mm3 (150-375); Red Blood Count 2.37 M/mm3 (4.2-5.4); Red Cell Distribution Width 14.2 % (11.5-14.5); White Blood Count 5.5 K/mm3 (4.5-10.0)
[2020-03-16 05:52] LABS: Albumin Level 3.2 g/dL (3.5-5.1); Anion Gap 4 mmol/L (8-16); Blood Urea Nitrogen 19 mg/dL (7-17); Calcium 8.4 mg/dL (8.4-10.2); Carbon Dioxide 33 mmol/L (22-30); Chloride 94 mmol/L (98-107); Estimated CRCL calculation 13 ml/min; Estimated Glomerular Filt Rate 10; Glucose 104 mg/dL (65-105); Phosphorus 3.3 mg/dL (2.5-4.5); Potassium 3.4 mmol/L (3.4-5.0); Sodium 131 mmol/L (137-145)
--- NOTE | 2020-03-16 06:14 | PM.PNNEP ---
Subjective Date/time seen: 03/16/20 07:42 reviewed surgery notes and ct scan fro 03/14 MPRESSION: 1. Laceration of the anteromedial lower leg with acute hematomas in the subjacent fat. Foci of high attenuation within the hematomas may be dystrophic soft tissue calcifications. Active extravasation from unnamed small subcutaneous vessels could have the same appearance.- (in my opinion- the mention of dystrophic calcification can be b/c of her esrd and long hx of hyperphosphatemia ) Objective Data Vital Signs Vital Signs: Vital Signs - 24 hr 03/15/20 14:00 03/15/20 16:05 03/15/20 16:35 Temperature 36.2 C L 37.0 C Pulse Rate 73 80 Respiratory Rate 20 18 Blood Pressure 124/52 L 105/32 L Pulse Oximetry 95 94 03/15/20 16:44 03/15/20 17:00 03/15/20 17:15 Temperature Pulse Rate 74 85 83 Respiratory Rate Blood Pressure 121/44 L 106/43 L 111/33 L Pulse Oximetry 03/15/20 17:30 03/15/20 17:45 03/15/20 18:00 Temperature Pulse Rate 92 93 95 Respiratory Rate Blood Pressure 99/31 L 95/31 L 125/31 L Pulse Oximetry 03/15/20 18:15 03/15/20 18:47 03/15/20 19:00 Temperature Pulse Rate 90 100 82 Respiratory Rate Blood Pressure 103/29 L 120/39 L 108/28 L Pulse Oximetry 03/15/20 19:17 03/15/20 19:30 03/15/20 19:50 Temperature 37.0 C Pulse Rate 86 89 Respiratory Rate Blood Pressure 106/40 L 127/45 L Pulse Oximetry 2 L 03/15/20 22:00 03/15/20 22:30 03/16/20 05:10 Temperature 36.2 C L 35.5 C L Pulse Rate 82 81 74 Respiratory Rate 20 17 22 H Blood Pressure 90/47 L 91/36 L Pulse Oximetry 97 97 96 Intake/Output Intake/Output: Intake & Output 03/13/20 03/14/20 03/15/20 03/16/20 23:59 23:59 23:59 23:59 Intake Total 250 1160 190 Output Total 0 0 Balance 250 1160 190 Meds/Results Medications: Active Medications Generic Name Dose Route Start Last Admin Trade Name Freq PRN Reason Stop Dose Admin Acetaminophen 1,000 mg 03/15/20 18:27 Acetaminophen 500 Mg Tablet PO Q6H PRN Mild Pain (1-3) or Fever Hydrocodone Bitart/Acetaminophen 1 tab 03/14/20 22:37 03/16/20 03:17 Hydrocodone/Acetaminophen (*Crx) 5-325 Mg Tablet PO 1 tab Q6H PRN Administration Pain Rated 4-6 Hydrocodone Bitart/Acetaminophen 1 tab 03/15/20 18:27 03/15/20 18:37 Hydrocodone/Acetaminophen (*Crx) 7.5-325 Mg Tablet PO 1 tab Q6H PRN Administration Pain Rated 7-10 Aspirin 81 mg 03/14/20 18:00 03/15/20 21:43 Aspirin 81 Mg Chewable Tablet PO 81 mg QPM ANDERS Administration Atorvastatin Calcium 20 mg 03/15/20 09:00 03/15/20 09:36 Atorvastatin 20 Mg Tablet PO 20 mg DAILY ANDERS Administration Calcium Carbonate 500 mg 03/15/20 09:00 03/15/20 08:28 Calcium/Vitamin D 500 Mg Tablet PO 04/14/20 09:01 500 mg DAILY ANDERS Administration Carvedilol 3.125 mg 03/14/20 21:00 03/14/20 23:12 Carvedilol 3.125 Mg Tablet PO 3.125 mg [id number] ANDERS Administration Dextrose 12.5 gm 03/14/20 20:59 Dextrose 50% 25 Gm/50 Ml Syringe IV PUSH PRN PRN Hypoglycemia Protocol Donepezil HCl 10 mg 03/14/20 21:00 03/15/20 21:43 Donepezil Hcl 10 Mg Tablet PO 10 mg HS ANDERS Administration Escitalopram Oxalate 10 mg 03/15/20 09:00 03/15/20 09:36 Escitalopram Oxalate 10 Mg Tablet PO 10 mg DAILY ANDERS Administration Famotidine 20 mg 03/14/20 21:00 03/15/20 21:43 Famotidine 20 Mg Tablet PO 20 mg Q12HR ANDERS Administration Glucagon 1 mg 03/14/20 20:59 Glucagon For Inj 1 Mg Vial IM PRN PRN Hypoglycemia Protocol Glucose 15 gm 03/14/20 20:59 Glucose Oral Gel 15 Gm Of Glucse In 37.5 Gm Tube PO PRN PRN Hypoglycemia Protocol Dextrose 1,000 mls @ 100 mls/hr 03/14/20 20:59 Dextrose 5% 1,000 Ml IVPB PRN PRN Hypoglycemia Protocol Insulin Aspart 2 - 5 units 03/15/20 08:00 03/15/20 21:41 Insulin Aspart (*Bk) 100 Units/Ml SUB-Q Not Gi
[2020-03-16 08:45] LABS: Glucose Point of Care 119 (65-105)
[2020-03-16] MEDS: ATORVASTATIN 20 MG TABLET PO (09:13)
[2020-03-16] MEDS: ESCITALOPRAM OXALATE 10 MG TABLET PO (09:13)
[2020-03-16] MEDS: MIDODRINE HCL 2.5 MG TABLET 5 MG PO ×3 (09:13→17:20)
[2020-03-16] MEDS: FAMOTIDINE 20 MG TABLET PO ×2 (09:13→20:49)
[2020-03-16 09:14] VITALS: PULSE 68
[2020-03-16] MEDS: VITAMIN B COMPLEX CAPSULE 1 CAP PO (09:14)
[2020-03-16] MEDS: SEVELAMER CARBONATE 800 MG TABLET PO ×3 (09:14→17:21)
[2020-03-16] MEDS: PREGABALIN (*CRX) 50 MG CAPSULE 100 MG PO ×2 (09:14→20:49)
[2020-03-16] MEDS: OPTI-GEN TAB 1 TABLET PO ×2 (09:14→17:21)
[2020-03-16] MEDS: PANTOPRAZOLE 40 MG TABLET PO (09:14)
[2020-03-16] MEDS: carvediloL 3.125 MG TABLET PO ×2 (09:14→20:49)
[2020-03-16 09:43] VITALS: BP 100/48
[2020-03-16] MEDS: HYDROcodone/acetaminophen (*CRX) 7.5-325 MG TABLET 1 TAB PO (09:48)
--- NOTE | 2020-03-16 11:13 | PCPTNOTE ---
Attempted PT eval. Pt refused. States she just got back to bed. Will try again later today.
--- NOTE | 2020-03-16 11:19 | PM.PNGS ---
Progress Note: A&P Assessment and Plan (1) Hematoma of right lower leg: Code(s): S80.11XA - Contusion of right lower leg, initial encounter Status: Acute Assessment and Plan: Hematoma of the right lower leg continues to improve. No evidence of bleeding. Continue to hold Brilinta (will plan on keeping this on hold until at least next Friday). Continue local wound care with daily dressing changes (I added silver gel today to help prevent future infection) and compression with maribel wraps. Elevate lower extremity when at rest. PT/OT ordered yesterday for discharge planning/evaluation. Discussed patient's case with care coordination - attempting to work on placement to a SNF for discharge for both rehab/PT and wound care. Patient and family agree with this decision. Will start to schedule a follow-up with Dr. Jo in the wound clinic at the end of next week. (2) End stage renal failure on dialysis: Code(s): N18.6 - End stage renal disease; Z99.2 - Dependence on renal dialysis Status: Chronic Assessment and Plan: Hemodialysis on , , . Management per Hospitalist. (3) Coronary artery disease involving [place] heart without angina pectoris: Code(s): I25.10 - Atherosclerotic heart disease of [place] coronary artery without angina pectoris Status: Acute Assessment and Plan: On dual anti-platelet therapy. Continue to hold Brilinta, okay to continue aspirin 81 mg. (4) Type 2 diabetes mellitus with diabetic nephropathy: Qualifiers: Diabetes mellitus shelter insulin use: with middle or intermediate school principal use Qualified Code(s): E11.21 - Type 2 diabetes mellitus with diabetic nephropathy; Z79.4 - custodial (current) use of insulin Code(s): E11.21 - Type 2 diabetes mellitus with diabetic nephropathy Status: Chronic Assessment and Plan: Management per Hospitalist. (5) Presence of prosthetic heart valve: Code(s): Z95.2 - Presence of prosthetic heart valve Status: Acute Additional Plan Discussed the patient's plan of care with Dr. Jo. Subjective Subjective Date/Time Seen: 03/16/20 11:19 Patient reports: no new complaints Interval history: Patient has no new complaints. Still has some pain in the right lower leg at the hematoma but this is controlled with oral pain medications, typically worse at night. Review of Systems Review of Systems: All systems reviewed & are unremarkable except as noted in HPI and below Exam Const: General: no acute distress, alert and awake Nutritional Appearance: obese morbidly obese Skin: Other: Right lower leg hematoma with no evidence of continued bleeding. Overall swelling continues to improve. No signs of infection. Large area of ecchymosis extending from left hip up to the left upper back. Soft, no obvious hematoma or skin breakdown. Neuro: General: moves all extremities and no focal motor deficits Psych: Mental Status: mental status grossly normal Speech and movement: Normal speech and movement present Affect: normal affect Insight: Good insight present (Psych) Judgement: Good judgement present (Psych) Objective Data Vital Signs Vital Signs: Vital Signs - 24 hr 03/15/20 14:00 03/15/20 16:05 03/15/20 16:35 Temperature 97.2 F L 98.6 F Pulse Rate 73 80 Respiratory Rate 20 18 Blood Pressure 124/52 L 105/32 L Pulse Oximetry 95 94 03/15/20 16:44 03/15/20 17:00 03/15/20 17:15 Temperature Pulse Rate 74 85 83 Respiratory Rate Blood Pressure 121/44 L 106/43 L 111/33 L Pulse Oximetry 03/15/20 17:30 03/15/20 17:45 03/15/20 18:00 Temperature Pulse Rate 92 93 95 Respiratory Rate Blood Pressure 99/31 L 95/31 L 125/31 L Pulse Oximetry 03/15/20 18:15 03/15/20 18:47 03/15/20 19:00 Temperature Pulse Rate 90 100 82 Respiratory Rate Blood Pressure 103/29 L 120/39 L 108/28 L Pulse Oximetry 03/15/20 19:17 03/15/20 19:30 03/15/20 19:50 Temperature 98.6 F Pulse R
[2020-03-16 12:09] LABS: Glucose Point of Care 141 (65-105)
[2020-03-16] MEDS: SILVERGEL (ELTA) 45 ML 1 APPLIC TOPICAL (12:39)
[2020-03-16 14:00] VITALS: BP 88/46; PULSE 74; RESP 18; TEMP 36.8; O2SAT 99
--- NOTE | 2020-03-16 14:24 | PM.IMPN ---
Progress Note: A&P Assessment and Plan (1) Hematoma of right lower leg: Code(s): S80.11XA - Contusion of right lower leg, initial encounter Status: Acute Assessment and Plan: She hit her leg at hemodialysis 10 days ago which resulted in bruising and ecchymosis. She subsequently went to an appointment with her PCP yesterday and injured the previously affected area when hitting a chair which caused a laceration. She was sent to the emergency department due to bleeding. She typically takes ticagrelor and ASA. General surgery was consulted in the emergency department and recommended holding ticagrelor and local wound care for now. CT demonstrated laceration of the anteromedial lower leg with acute hematomas in the subjacent fat with foci of high attenuation within the hematomas secondary to tissue calcifications versus active extravasation from unnamed small subcutaneous vessels could have the same appearance. Discussed with Dr. Jo who does not feel antibiotics are indicated at this time. Also discussed the finding of foci of gas on CT which Dr. Jo who feels is secondary to open wound as opposed to infection. She is afebrile without leukocytosis. General surgery recommends continued local wound care with daily dressing changes and compression with BIBI wraps. Silver gel added per general surgery today to prevent future infection. Appreciate general surgery input. Continue to elevate RLE Monitor closely for signs of further bleeding Continue norco as needed for pain Ticagrelor is on hold for now per general surgery recommendations. ASA is fine from their standpoint and will be continued. Plan for SNF at discharge for PT/OT and wound care. Care coordination is following for placement. (2) Anemia, unspecified: Qualifiers: Anemia type: unspecified type Qualified Code(s): D64.9 - Anemia, unspecified Code(s): D64.9 - Anemia, unspecified Status: Acute Assessment and Plan: The patient's baseline hemoglobin appears to be 9-10. Hemoglobin on arrival was 8.8, a slight decline from baseline and likely secondary to acute blood loss from her injury. Hb is stable today at 8.1. Continue to monitor hemoglobin and hematocrit with daily CBC Transfuse as needed to maintain Hb >7 (3) Diabetes mellitus with hypoglycemia: Qualifiers: Diabetes mellitus type: type 2 Diabetes mellitus senior care insulin use: with senior care use Diabetes mellitus complication detail: without coma Qualified Code(s): E11.649 - Type 2 diabetes mellitus with hypoglycemia without coma; Z79.4 - adjunct faculty for medical terminology (current) use of insulin Code(s): E11.649 - Type 2 diabetes mellitus with hypoglycemia without coma Status: Acute Assessment and Plan: Hemoglobin 03/14/20 was 5.1%. She is currently on 3 units glargine qHS and sliding scale prior to admission. Blood sugar was low at 56 on arrival to the ED but blood sugars have improved today. Most recent was 141. Hold long-acting insulin as she had hypoglycemia on arrival Continue ACHS glucose monitoring, sliding scale insulin, and hypoglycemia protocol Adjust regimen as needed (4) End stage renal failure on dialysis: Code(s): N18.6 - End stage renal disease; Z99.2 - Dependence on renal dialysis Status: Chronic Assessment and Plan: Dr. Marmolejo with nephrology has been consulted to maintain HD on a ,, schedule while hospitalized. Management per nephrology Sodium is a bit low at 131, continue hemodialysis (5) Coronary artery disease: Code(s): I25.10 - Atherosclerotic heart disease of [place] coronary artery without angina pectoris Status: Chronic Assessment and Plan: Chronic. She has no acute complaints at this time. Continue ASA and carvedilol Hold ticagrelor until next Friday (03/20) (6) NGUYỄN (obstructive sleep apnea): Code(s): G47.33 - Obstructive sleep apnea (adult) (pediatri
[2020-03-16 16:56] LABS: SARS-CoV-2 RNA PCR Negative
[2020-03-16] MEDS: ASPIRIN 81 MG CHEWABLE TABLET PO (17:21)
[2020-03-16 18:02] LABS: Glucose Point of Care 148 (65-105)
[2020-03-16 20:00] VITALS: BP 105/38; PULSE 76; RESP 20; TEMP 36.2; O2SAT 96
[2020-03-16 20:49] VITALS: PULSE 76
[2020-03-16] MEDS: DONEPEZIL HCL 10 MG TABLET PO (20:49)
[2020-03-16] MEDS: LATANOPROST 0.005% OP SOLN 2.5 ML BTL 1 DROP RIGHT EYE (20:49)
[2020-03-16 21:20] LABS: Glucose Point of Care 127 (65-105)
[2020-03-17] VITALS (25 sets, daily range): BP systolic 90–122; BP diastolic 23–46; PULSE 62–83; RESP 13–20; TEMP 35.8–37.2; O2SAT 90–100
[2020-03-17 05:58] LABS: Hematocrit 24.8 % (37.0-47.0); Hemoglobin 7.7 g/dL (12.0-15.0); Mean Corpuscular Hemoglobin 33.6 pg (26-34); Mean Corpuscular Volume 108.3 fl (80-100); Mean Platelet Volume 10.4 fl (7.4-10.4); Platelet Count Result 98 k/mm3 (150-375); Red Blood Count 2.29 M/mm3 (4.2-5.4); Red Cell Distribution Width 14.3 % (11.5-14.5); White Blood Count 6.4 K/mm3 (4.5-10.0)
--- NOTE | 2020-03-17 06:07 | PM.PNNEP ---
Progress Note: A&P Assessment and Plan (1) Anemia in chronic kidney disease: Qualifiers: Chronic kidney disease stage: on chronic dialysis Qualified Code(s): N18.6 - End stage renal disease; D63.1 - Anemia in chronic kidney disease; Z99.2 - Dependence on renal dialysis Code(s): N18.9 - Chronic kidney disease, unspecified; D63.1 - Anemia in chronic kidney disease Status: Acute (2) End stage renal failure on dialysis: Code(s): N18.6 - End stage renal disease; Z99.2 - Dependence on renal dialysis Status: Chronic Additional Plan transfuse 1 u prbcs on hd today hd today. v low dose heparin. poss discharge latter. Subjective Date/time seen: 03/17/20 06:07 no sig changes Objective Data Vital Signs Vital Signs: Vital Signs - 24 hr 03/16/20 09:14 03/16/20 09:43 03/16/20 14:00 Temperature 36.8 C Pulse Rate 68 74 Respiratory Rate 18 Blood Pressure 100/48 L 88/46 L Pulse Oximetry 99 03/16/20 20:00 03/16/20 20:49 03/17/20 00:00 Temperature 36.2 C L 36.2 C L Pulse Rate 76 76 77 Respiratory Rate 20 20 Blood Pressure 105/38 L 112/37 L Pulse Oximetry 96 98 03/17/20 01:12 03/17/20 03:47 03/17/20 04:00 Temperature 36.0 C L Pulse Rate 72 68 79 Respiratory Rate 20 14 20 Blood Pressure 109/32 L Pulse Oximetry 93 90 100 Intake/Output Intake/Output: Intake & Output 03/14/20 03/15/20 03/16/20 03/17/20 23:59 23:59 23:59 23:59 Intake Total 250 1160 1090 150 Output Total 0 0 0 Balance 250 1160 1090 150 Meds/Results Medications: Active Medications Generic Name Dose Route Start Last Admin Trade Name Freq PRN Reason Stop Dose Admin Acetaminophen 1,000 mg 03/15/20 18:27 Acetaminophen 500 Mg Tablet PO Q6H PRN Mild Pain (1-3) or Fever Hydrocodone Bitart/Acetaminophen 1 tab 03/14/20 22:37 03/16/20 03:17 Hydrocodone/Acetaminophen (*Crx) 5-325 Mg Tablet PO 1 tab Q6H PRN Administration Pain Rated 4-6 Hydrocodone Bitart/Acetaminophen 1 tab 03/15/20 18:27 03/16/20 09:48 Hydrocodone/Acetaminophen (*Crx) 7.5-325 Mg Tablet PO 1 tab Q6H PRN Administration Pain Rated 7-10 Aspirin 81 mg 03/14/20 18:00 03/16/20 17:21 Aspirin 81 Mg Chewable Tablet PO 81 mg QPM ANDERS Administration Atorvastatin Calcium 20 mg 03/15/20 09:00 03/16/20 09:13 Atorvastatin 20 Mg Tablet PO 20 mg DAILY ANDERS Administration Calcium Carbonate 500 mg 03/15/20 09:00 03/16/20 09:13 Calcium/Vitamin D 500 Mg Tablet PO 04/14/20 09:01 500 mg DAILY ANDERS Administration Carvedilol 3.125 mg 03/14/20 21:00 03/16/20 20:49 Carvedilol 3.125 Mg Tablet PO 3.125 mg [id number],2100 ANDERS Administration Dextrose 12.5 gm 03/14/20 20:59 Dextrose 50% 25 Gm/50 Ml Syringe IV PUSH PRN PRN Hypoglycemia Protocol Donepezil HCl 10 mg 03/14/20 21:00 03/16/20 20:49 Donepezil Hcl 10 Mg Tablet PO 10 mg HS ANDERS Administration Escitalopram Oxalate 10 mg 03/15/20 09:00 03/16/20 09:13 Escitalopram Oxalate 10 Mg Tablet PO 10 mg DAILY ANDRES Administration Famotidine 20 mg 03/14/20 21:00 03/16/20 20:49 Famotidine 20 Mg Tablet PO 20 mg Q12HR ANDERS Administration Glucagon 1 mg 03/14/20 20:59 Glucagon For Inj 1 Mg Vial IM PRN PRN Hypoglycemia Protocol Glucose 15 gm 03/14/20 20:59 Glucose Oral Gel 15 Gm Of Glucse In 37.5 Gm Tube PO PRN PRN Hypoglycemia Protocol Dextrose 1,000 mls @ 100 mls/hr 03/14/20 20:59 Dextrose 5% 1,000 Ml IVPB PRN PRN Hypoglycemia Protocol Insulin Aspart 2 - 5 units 03/15/20 08:00 03/16/20 17:20 Insulin Aspart (*Bkc) 100 Units/Ml SUB-Q Not Given TIDWM ANDERS Protocol Latanoprost 1 drop 03/14/20 21:00 03/16/20 20:49 Latanoprost 0.005% Op Soln 2.5 Ml Btl RIGHT EYE 1 drop HS ANDERS Administration Miconazole Nitrate 1 applic 03/15/20 09:00 03/16/20 20:50 Miconazole 2% Antifungal Ointment 56
[2020-03-17 06:43] LABS: Glucose Point of Care 102 (65-105)
[2020-03-17 07:03] LABS: Albumin Level 3.1 g/dL (3.5-5.1); Anion Gap 7 mmol/L (8-16); Blood Urea Nitrogen 32 mg/dL (7-17); Calcium 8.9 mg/dL (8.4-10.2); Carbon Dioxide 32 mmol/L (22-30); Chloride 93 mmol/L (98-107); Estimated CRCL calculation 9 ml/min; Estimated Glomerular Filt Rate 7; Glucose 106 mg/dL (65-105); Magnesium 1.9 mg/dL (1.6-2.3); Phosphorus 4.4 mg/dL (2.5-4.5); Potassium 3.8 mmol/L (3.4-5.0); Sodium 132 mmol/L (137-145)
[2020-03-17] MEDS: ESCITALOPRAM OXALATE 10 MG TABLET PO (09:41)
[2020-03-17] MEDS: ATORVASTATIN 20 MG TABLET PO (09:41)
[2020-03-17] MEDS: OPTI-GEN TAB 1 TABLET PO ×2 (09:42→18:52)
[2020-03-17] MEDS: VITAMIN B COMPLEX CAPSULE 1 CAP PO (09:42)
[2020-03-17] MEDS: MIDODRINE HCL 2.5 MG TABLET 5 MG PO ×3 (09:42→18:52)
[2020-03-17] MEDS: SEVELAMER CARBONATE 800 MG TABLET PO ×3 (09:42→18:52)
[2020-03-17] MEDS: PANTOPRAZOLE 40 MG TABLET PO (09:42)
[2020-03-17] MEDS: FAMOTIDINE 20 MG TABLET PO ×2 (09:42→21:08)
[2020-03-17] MEDS: PREGABALIN (*CRX) 50 MG CAPSULE 100 MG PO ×2 (09:42→21:08)
[2020-03-17] MEDS: SILVERGEL (ELTA) 45 ML 1 APPLIC TOPICAL (12:00)
[2020-03-17 12:06] LABS: Glucose Point of Care 141 (65-105)
[2020-03-17] MEDS: HYDROcodone/acetaminophen (*CRX) 7.5-325 MG TABLET 1 TAB PO (13:07)
--- NOTE | 2020-03-17 13:36 | PM.PNGS ---
Progress Note: A&P Assessment and Plan (1) Hematoma of right lower leg: Code(s): S80.11XA - Contusion of right lower leg, initial encounter Status: Acute Assessment and Plan: Hematoma of the right lower leg continues to improve. No evidence of bleeding. Continue to hold Brilinta (will plan on keeping this on hold until at least next Friday). Continue local wound care with daily dressing changes (Contiue to appy silver gel to help prevent future infection) and compression with maribel wraps. Elevate lower extremity when at rest. PT/OT ordered yesterday for discharge planning/evaluation. Discussed patient's case with care coordination - attempting to work on placement to a SNF for discharge for both rehab/PT and wound care. Patient and family agree with this decision. ( This may be arranged for after dialysis today. Patient planning on the care center on [address] in [place]). Has a follow-up with Dr. Jo in the wound clinic at the end of next week. Next . Mar 23. (2) End stage renal failure on dialysis: Code(s): N18.6 - End stage renal disease; Z99.2 - Dependence on renal dialysis Status: Chronic Assessment and Plan: Hemodialysis on , , Fri . Management per Hospitalist. (3) Coronary artery disease involving [place] heart without angina pectoris: Code(s): I25.10 - Atherosclerotic heart disease of [place] coronary artery without angina pectoris Status: Acute Assessment and Plan: On dual anti-platelet therapy. Continue to hold Brilinta, okay to continue aspirin 81 mg. (4) Type 2 diabetes mellitus with diabetic nephropathy: Qualifiers: Diabetes mellitus senior care insulin use: with terminal superintendent use Qualified Code(s): E11.21 - Type 2 diabetes mellitus with diabetic nephropathy; Z79.4 - penitentiary (current) use of insulin Code(s): E11.21 - Type 2 diabetes mellitus with diabetic nephropathy Status: Chronic Assessment and Plan: Management per Hospitalist. (5) Presence of prosthetic heart valve: Code(s): Z95.2 - Presence of prosthetic heart valve Status: Acute Additional Plan Discussed the patient's plan of care with Hospitalist team. Okay with surgery to be discharged later today to [facility]. Will plan if patient wishes to have her return for wound care at our outpatient wound care clinic next week. Subjective Subjective Date/Time Seen: 03/17/20 12:10 Patient seen lying in her bed. Wound nurse Deana came to help change dressing on the patient's right lower leg. Patient states she still has some pain there specially if it is manipulated but otherwise is doing well with the wrapping. She is starting to get up with physical therapy but not moving a lot. Anne-Marie the LEAD RECREATION ASSISTANT from the hospitalist's states that she probably will transfer to a extended care facility after dialysis today. Review of Systems Review of Systems: All systems reviewed & are unremarkable except as noted in HPI and below Constitutional: Constitutional: Reports as per HPI, Reports no additional constitutional complaints, Denies chills, Denies fatigue, Denies fever(s) and Reports frequent falls Cardiovascular: Cardiovascular: Reports no additional cardiovascular complaints, Denies chest pain, Denies syncope, Reports leg edema, Denies radiating jaw, neck or arm pain, Denies dyspnea and Reports dyspnea on exertion Respiratory: Respiratory: Reports no additional respiratory complaints, Denies cough, Denies dyspnea, Reports dyspnea on exertion and Denies wheezing Gastrointestinal: Gastrointestinal: Reports no additional gastrointestinal complaints, Denies abdominal pain, Denies bloating, Denies change in bowel habits, Denies change in stool character, Denies constipation, Denies dysphagia, Denies diarrhea, Denies nausea and Denies vomiting Genitourinary: Genitourinary: Denies hematuria and Denies dysuria Musculoskeletal: Musculoskeletal: Reports no additional musculoskeletal compl
--- NOTE | 2020-03-17 14:00 | PC.NURSE ---
1400 - Patient taken to dialysis via bed. Handoff to dialysis nurse Claudy. 1445 - Blood obtained from blood bank at request of dialysis equipment technician. Blood verified with dialysis nurse - in TAR. Dialysis nurse to transfuse blood during treatment. Call placed to Dr. Marmolejo from dialysis room - to clarify number of units to be transfused. 1 unit PRBCs to be transfused during dialysis treatment. SOPHIE Loco - dialysis - aware.
--- NOTE | 2020-03-17 15:09 | PM.DS ---
DS: Admitting Diagnosis Admitting Diagnosis Admitting Diagnosis: Right foot laceration and hematoma DS: Discharge Diagnosis Discharge Diagnosis (1) Hematoma of right lower leg: Code(s): S80.11XA - Contusion of right lower leg, initial encounter Status: Acute Assessment and Plan: Discharge Summary (Date of service 03/17/20): Ms. Osman is a 74 y.o. female with PMH significant for ESRD on HD, chronic anemia, IDDM, CAD s/p CABG, aortic stenosis s/p bioprosthetic repair and subsequent TAVR, HFpEF, NGUYỄN with BiPAP noncompliance, and GERD who presented to the emergency department 03/14/20 for the evaluation of laceration with bleeding to the distal right leg after traumatic injury. She hit her leg at hemodialysis 10 days prior to admission which resulted in bruising and ecchymosis. She subsequently went to an appointment with her PCP yesterday and injured the previously affected area when hitting a chair which caused a laceration. She was sent to the emergency department due to bleeding. She typically takes ticagrelor and ASA. General surgery was consulted in the emergency department and recommended holding ticagrelor through 03/20/20 and local wound care. CT RLE demonstrated laceration of the anteromedial lower leg with acute hematomas in the subjacent fat with foci of high attenuation within the hematomas secondary to tissue calcifications versus active extravasation from unnamed small subcutaneous vessels. She was seen by Dr. Jo throughout her hospital stay who did not feel antibiotics were indicated given no evidence of infection. WBC was normal and she was afebrile. The wound was evaluated daily by general surgery who recommended conservative management with local wound care with daily dressing changes with topical silver gel to prevent infection and compression with BIBI wraps. Hb remained stable with no ongoing bleeding. SNF was recommended per the surgery team for close monitoring, dressing changes, and therapy. She was accepted to [facility]. She was instructed to follow-up in the wound clinic with Dr. Jo on Mar 23. She was discharged in hemodynamically stable condition on the afternoon of 03/17/20. She understood worrisome signs and symptoms which would warrant return to the emergency department. (2) Anemia, unspecified: Qualifiers: Anemia type: unspecified type Qualified Code(s): D64.9 - Anemia, unspecified Code(s): D64.9 - Anemia, unspecified Status: Acute Assessment and Plan: The patient's baseline hemoglobin appears to be 9-10. Hemoglobin on arrival was 8.8, a slight decline from baseline and likely secondary to acute blood loss from her injury. Plan for repeat CBC in 03/20/20 for close monitoring. She had no ongoing bleeding. (3) Diabetes mellitus with hypoglycemia: Qualifiers: Diabetes mellitus type: type 2 Diabetes mellitus terminal superintendent insulin use: with detention use Diabetes mellitus complication detail: without coma Qualified Code(s): E11.649 - Type 2 diabetes mellitus with hypoglycemia without coma; Z79.4 - ocean transportation intermediary (current) use of insulin Code(s): E11.649 - Type 2 diabetes mellitus with hypoglycemia without coma Status: Acute Assessment and Plan: Hemoglobin 03/14/20 was 5.1%. She is currently on 3 units glargine qHS and sliding scale prior to admission. Blood sugar was low at 56 on arrival to the ED but blood sugars improved. Long-acting insulin was held while inpatient and resumed at discharge. (4) End stage renal failure on dialysis: Code(s): N18.6 - End stage renal disease; Z99.2 - Dependence on renal dialysis Status: Chronic Assessment and Plan: Dr. Marmolejo with nephrology has been consulted to maintain HD on a M,, schedule while hospitalized. Dr. Marmolejo was consulted to maintain hemodialysis. (5) Coronary artery disease: Code(s): I25.10 - Atherosclerotic heart disease of [place]
[2020-03-17 15:29] LABS: Hepatitis B Surface Antigen Negative (Negative)
--- NOTE | 2020-03-17 15:40 | PC.NURSE ---
On 03/17/20, the student, [SN Sunny ], provided care and completed [employer] documentation on this patient. I have reviewed the student's documentation and agree with the findings.
[2020-03-17 15:47] LABS: Hepatitis B Surface Anti Res Negative
[2020-03-17] MEDS: EPOETIN ALFA-EPBX 20,000 UNITS/ML VIAL 20000 UNITS IV PUSH (17:01)
--- NOTE | 2020-03-17 17:30 | PC.NURSE ---
Patient returned from dialysis. No c/o pain. Awake and alert. No distress noted. Settled in room.
[2020-03-17] MEDS: ASPIRIN 81 MG CHEWABLE TABLET PO (18:52)
[2020-03-17 19:01] LABS: Glucose Point of Care 121 (65-105)
[2020-03-17] MEDS: DONEPEZIL HCL 10 MG TABLET PO (21:08)
[2020-03-17] MEDS: LATANOPROST 0.005% OP SOLN 2.5 ML BTL 1 DROP RIGHT EYE (21:08)
[2020-03-17 21:20] LABS: Glucose Point of Care 185 (65-105)
== END 2020-03-18 03:13 | DRG 604 ==
LOC: ANHED 10:22 → ANH2MED 16:18
PROVIDERS: Internal Medicine Nephrology; Physician Assistant; Admitting Provider Family Medicine; Emergency Provider Emergency Medicine; PCP Family Medicine; Visit Provider Internal Medicine
DX: S80.11XA Contusion of right lower leg, initial encounter (principal); N18.6 End stage renal disease; I13.2 Hypertensive heart and chronic kidney disease with heart failure and with stage 5 chronic kidney disease, or end stage renal disease; I48.20 Chronic atrial fibrillation, unspecified; Z68.42 Body mass index [BMI] 45.0-49.9, adult; D62 Acute posthemorrhagic anemia; S81.812A Laceration without foreign body, left lower leg, initial encounter; W22.8XXA Striking against or struck by other objects, initial encounter; I50.9 Heart failure, unspecified; E11.42 Type 2 diabetes mellitus with diabetic polyneuropathy; E11.22 Type 2 diabetes mellitus with diabetic chronic kidney disease; E11.649 Type 2 diabetes mellitus with hypoglycemia without coma; I25.10 Atherosclerotic heart disease of native coronary artery without angina pectoris; G47.33 Obstructive sleep apnea (adult) (pediatric); Z99.2 Dependence on renal dialysis; Z20.822 Contact with and (suspected) exposure to COVID-19; H40.9 Unspecified glaucoma; D63.1 Anemia in chronic kidney disease; F32.9 Major depressive disorder, single episode, unspecified; J44.9 Chronic obstructive pulmonary disease, unspecified; F03.90 Unspecified dementia, unspecified severity, without behavioral disturbance, psychotic disturbance, mood disturbance, and anxiety; Z86.73 Personal history of transient ischemic attack (TIA), and cerebral infarction without residual deficits; Z95.1 Presence of aortocoronary bypass graft; Z90.49 Acquired absence of other specified parts of digestive tract; Z95.2 Presence of prosthetic heart valve; E11.21 Type 2 diabetes mellitus with diabetic nephropathy; E66.01 Morbid (severe) obesity due to excess calories
CPT/HCPCS: 36415; 36430; 73590; 73701; 80048; 80053; 80069; 82948; 83735; 85025; 85027; 85610; 85730; 86705; 86706; 86803; 86850; 86900; 86901; 86920; 87340; 96374; 96375; 97110; 97161; 97165; 97530; 99285; A9270; C9803; G0378; J0131; J1170; P9016; Q5106; Q9967; U0003; U0005